=== PATIENT | female | born 2000 | race Caucasian/White ===

== ENCOUNTER 2023-01-12 14:08 | Outpatient (AMB) | payer OTHER, SELFPAY ==
--- NOTE | 2023-01-12 14:33 | AM.OFFWIN_ITS ---
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 She has been experiecing headaches, cough and congestion. Patient Tobacco Use Status: Never used Tobacco Allergies acetaminophen [From Percocet] Adverse Reaction (Mild, Verified 01/12/23 15:14) Hives oxycodone [From Percocet] Adverse Reaction (Mild, Verified 01/12/23 15:14) Hives Medication List - Last Reconciled 01/12/23 by Velasquez Rothman MD sertraline mg PO Do you need a note to return to daycare/school/sports/work: Yes HPI EP, cough, congestion ([phone]) HPI Details Patient presents for a sick visit. Reporting symptoms of sinus congestion, sore throat and difficulty swallowing. Low-grade fever. No family member is sick. No recent travel. Patient reports symptoms of malaise and fatigue. [facility] Social History Patient Tobacco Use Status: Never used Tobacco Physical Exam Vital Signs: Last Vital Signs Temp 96.8 F 01/12/23 14:40 Pulse 88 01/12/23 14:40 BP 100/68 01/12/23 14:40 Pulse Ox 98 01/12/23 14:40 Oxygen Delivery Method Room Air 01/12/23 14:40 Const General: cooperative and healthy appearing Nutritional Appearance: well nourished Orientation/consciousness: patient oriented x3 Limitations: no limitations HEENT Head: Yes normal to inspection Eyes General: appearance normal, both eyes and all related structures Neck Neck: Yes normal visual inspection Chest Chest palpation & inspection: normal palpation of entire chest wall Resp Effort & Inspection: normal respiratory effort Neuro General: patient oriented x3 Assessment & Plan Assessment & Plan (1) Upper respiratory tract infection: Code(s): J06.9 - Acute upper respiratory infection, unspecified Plan: Antibiotics ordered. Increase fluid intake. Tylenol for aches and pains. If symptoms worsen, follow-up here for a recheck. Coding Level of Care Code Est Pt Level 3 (38778) Diagnoses Upper respiratory tract infection J06.9
[2023-01-12 14:40] VITALS: BP 100/68; PULSE 88; TEMP 36; O2SAT 98
== END 2023-01-12 15:25 | disposition home or self-care (01) ==
PROVIDERS: Visit Provider Internal Medicine
DX: J06.9 Acute upper respiratory infection, unspecified (principal)
CPT/HCPCS: 99213

== ENCOUNTER 2023-03-05 08:54 | Outpatient (AMB) | payer OTHER, SELFPAY ==
--- NOTE | 2023-03-05 09:00 | AM.OFFWIN_ITS ---
Intake Vital Signs 03/05/23 09:09 Weight 170 lb BP 108/74 Blood Pressure Location Rt brachial Position Sitting Pulse 76 Pulse Source Pulse Oximeter Temp 97.8 F Temp Source Temporal Artery Scan Pulse Oximetry (%) 97 Oxygen Delivery Method Room Air Intake Visit Reasons: EST/cough/[phone] Intake Note: pt is here for c/o fever, chills, body ache, cough, sore throat Patient Tobacco Use Status: Never used Tobacco Allergies acetaminophen [From Percocet] Adverse Reaction (Mild, Verified 03/05/23 09:01) Hives oxycodone [From Percocet] Adverse Reaction (Mild, Verified 03/05/23 09:01) Hives Do you need a note to return to daycare/school/sports/work: Yes HPI HPI Comments History of Present Illness Details This is a 22-year-old female who presents to the office today for sick visit. Patient complaining of viral URI symptoms including fever/chills, cough, sore throat, mild nasal congestion, and rhinorrhea. Patient states she was treated with antibiotics for strep and an ear infection approximately 1 month ago. She states her symptoms resolved for several weeks. However, her URI symptoms began again approximately 2 days ago. 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 [facility] Social History Patient Tobacco Use Status: Never used Tobacco Review of Systems Const All systems reviewed & are unremarkable except as noted in HPI and below Reports no additional complaints Eyes Reports no additional complaints ENT Reports no additional complaints Card Reports no additional complaints Resp Reports no additional complaints GI Reports no additional complaints Reports no additional complaints Musc Reports no additional complaints Skin/Breast Reports system reviewed and no additional complaints, except as documented Neuro Reports no additional complaints Psych Reports no additional complaints Endo Reports no additional complaints Robin/Lymph Reports no additional complaints Aller/Immun Reports no additional complaints Physical Exam Vital Signs: Last Vital Signs Temp 97.8 F 03/05/23 09:09 Pulse 76 03/05/23 09:09 BP 108/74 03/05/23 09:09 Pulse Ox 97 03/05/23 09:09 Oxygen Delivery Method Room Air 03/05/23 09:09 Const Other: Vital signs reviewed. Constitutional: Non-toxic appearing. No acute distress. Well-developed and well-nourished. HEENT: Normocephalic and atraumatic. Mild erythema of the external auditory canal but tympanic membranes are within normal limits bilaterally. Moist mucous membranes. Mild posterior pharyngeal erythema but no exudates. No peritonsillar mass or cellulitis noted. No uvular deviation. Skin: Warm and dry. No rashes or lesions noted. Neck: Full and painless range of motion. No cervical lymphadenopathy. Cardio: Regular rate and rhythm. No murmurs, gallops, or rubs. No lower e xtremity edema. No JVD. Pulmonary: No respiratory distress. No accessory muscle usage. Clear to auscultation bilaterally without wheezing, crackles, or rhonchi. Gastrointestinal: Soft, nontender, and nondistended in all 4 quadrants. Normoactive bowel sounds in all 4 quadrants. Genitourinary: No CVA tenderness. Musculoskeletal: Normal range of motion in joints throughout the body. No deformity or other signs of injury. Neuro: Alert and oriented x4. Cranial nerves 2-12 grossly intact. No focal deficits appreciated. Psych: Normal mood and affect. Results AMB Rapid Strep AMB Rapid Strep Negative Last Edit by Jose Yen CMA on 03/05/23 09 :14 Assessment & Plan Assessment & Plan (1) Upper respiratory tract infection: Code(s): J06.9 - Acute upper respiratory infection, unspecified Plan Patient presenting with viral URI symptoms x2 days. Her physical examination is benign with the exception of mild posterior pharyngeal erythema and mild erythema of the external auditory canals bilaterally. No evidence of an acute otitis media, acute otitis externa, or acute infection such as pneumonia. History and physical most consistent with acute upper respiratory infection. Patient was encouraged that this is a self-limiting illness and antibiotics are not recommended. Recommended symptomatic management including rest, increased fluids, advil/tylenol for pain/fever, and over the counter throat lozenges/decongestants. Rapid strep negative. COVID/RSV/flu sent. Patient advised to follow up here or go to the emergency room for worsening/persistent symptoms. Patient verbalized understanding and is agreeable with the plan. Orders: Orders AMB Rapid Strep Screen Today Z13.9 - Encounter for screening, unspecified SARS-CoV2/FLU/RSV Today R09.89 - Other specified symptoms and signs involving the circulatory and respiratory systems Coding Level of Care Code Est Pt Level 3 (12994) Diagnoses Upper respiratory tract infection J06.9
[2023-03-05 09:09] VITALS: BP 108/74; PULSE 76; TEMP 36.6; O2SAT 97
== END 2023-03-05 09:51 | disposition home or self-care (01) ==
PROVIDERS: Visit Provider Physician Assistant Medical
DX: J06.9 Acute upper respiratory infection, unspecified (principal); J02.9 Acute pharyngitis, unspecified
CPT/HCPCS: 87880; 99213

== ENCOUNTER 2023-03-05 11:16 | Outpatient (REF) | payer OTHER, SELFPAY ==
[2023-03-05 14:18] LABS: Influenza A PCR NEGATIVE (Negative); Influenza B PCR NEGATIVE (Negative); Resp Syncy Virus RNA Qual PCR NEGATIVE (Negative); SARS COV2 PCR INHOUSE NEGATIVE (Negative)
== END 2023-03-05 11:17 | disposition home or self-care (01) ==
LOC: HO.LAB 11:16
PROVIDERS: Visit Provider Physician Assistant Medical
DX: Z11.52 Encounter for screening for COVID-19 (principal); Z20.822 Contact with and (suspected) exposure to COVID-19; R09.89 Other specified symptoms and signs involving the circulatory and respiratory systems
CPT/HCPCS: 0241U

== ENCOUNTER 2023-03-24 15:02 | Outpatient (AMB) | payer OTHER, SELFPAY ==
--- NOTE | 2023-03-24 15:03 | AM.OFFWIN_ITS ---
Intake Vital Signs 03/24/23 15:05 Height 5 ft 2 in BP 124/70 Blood Pressure Location Rt brachial Position Sitting Pulse 87 Pulse Source Pulse Oximeter Temp 97.3 F Temp Source Temporal Artery Scan Pulse Oximetry (%) 98 Oxygen Delivery Method Room Air Intake Visit Reasons: EST/cough, and chest congestion (lobby) Intake Note: Pt is here c/o bad cough and chest congestion. Patient Tobacco Use Status: Never used Tobacco Allergies acetaminophen [From Percocet] Adverse Reaction (Mild, Verified 03/24/23 15:28) Hives oxycodone [From Percocet] Adverse Reaction (Mild, Verified 03/24/23 15:28) Hives Medication List - Last Reconciled 03/24/23 by Velasquez Rothman MD sertraline mg PO Do you need a note to return to daycare/school/sports/work: No HPI EST/cough, and chest congestion (lobby) HPI Details 22-year-old female [facility]. Patient is reporting symptoms of a lingering cough for the past few weeks. Symptoms have progressively worsened yesterday. She is complaining of wheezing and shortness of breath. No productive sputum. [facility] Social History Patient Tobacco Use Status: Never used Tobacco Physical Exam Vital Signs: Last Vital Signs Temp 97.3 F 03/24/23 15:05 Pulse 87 03/24/23 15:05 BP 124/70 03/24/23 15:05 Pulse Ox 98 03/24/23 15:05 Oxygen Delivery Method Room Air 03/24/23 15:05 Const General: cooperative and healthy appearing Nutritional Appearance: well nourished Orientation/consciousness: patient oriented x3 Limitations: no limitations HEENT Head: Yes normal to inspection Eyes General: appearance normal, both eyes and all related structures Neck Neck: Yes normal visual inspection Chest Chest palpation & inspection: normal palpation of entire chest wall Resp Effort & Inspection: normal respiratory effort Neuro General: patient oriented x3 Assessment & Plan Assessment & Plan (1) Upper respiratory tract infection: Code(s): J06.9 - Acute upper respiratory infection, unspecified Plan: Chest x-ray images were personally reviewed by me. Tapering dose of prednisone, albuterol MDI, and Robitussin with codeine sent in. Orders: Orders XR chest 2V Today R05.9 - Cough, unspecified SARS-CoV2/FLU/RSV Today R43.9 - Unspecified disturbances of smell and taste Coding Level of Care Code Est Pt Level 4 (07792) Diagnoses Upper respiratory tract infection J06.9
[2023-03-24 15:05] VITALS: BP 124/70; PULSE 87; TEMP 36.3; O2SAT 98
== END 2023-03-24 16:27 | disposition home or self-care (01) ==
PROVIDERS: Visit Provider Internal Medicine
DX: J06.9 Acute upper respiratory infection, unspecified (principal)
CPT/HCPCS: 99214

== ENCOUNTER 2023-03-24 15:23 | Outpatient (REF) | payer OTHER, SELFPAY ==
--- NOTE | ~2023-03-24 | XR_ITS ---
EXAMINATION: XR CHEST CLINICAL INFORMATION: Cough, unspecified COMPARISON: None available. TECHNIQUE: 2 views of the chest were obtained. FINDINGS: No airspace infiltrates or pneumothorax seen. Hilar regions are unremarkable. No evidence for vascular congestion. Pleural surfaces appear to be clear. Nodular opacities project toward the bases, likely related to nipple shadows. There is no evidence for thoracic compression fracture. XR/XR chest 2V IMPRESSION: No evidence for acute process.
== END 2023-03-24 15:24 | disposition home or self-care (01) ==
LOC: HO.HMGCX 15:23
PROVIDERS: Visit Provider Internal Medicine
DX: R05.9 Cough, unspecified (principal)
CPT/HCPCS: 71046

== ENCOUNTER 2023-11-17 08:03 | Outpatient (AMB) | payer OTHER, SELFPAY ==
[2023-11-17 08:15] VITALS: BP 120/76; PULSE 84; TEMP 36.9; O2SAT 98; BMI 35.8
--- NOTE | 2023-11-17 08:15 | AM.OFFWIN_ITS ---
Intake Vital Signs 11/17/23 08:15 Height 5 ft 2 in Weight 196 lb BMI 35.8 BP 120/76 Blood Pressure Location Lt brachial Position Sitting Pulse 84 Pulse Source Pulse Oximeter Temp 98.5 F Temp Source Oral Pulse Oximetry (%) 98 Oxygen Delivery Method Room Air Intake Visit Reasons: EP sore threat headache Intake Note: pt is here for sore throat and headache Patient Tobacco Use Status: Never used Tobacco Allergies acetaminophen [From Percocet] Adverse Reaction (Mild, Verified 11/17/23 08:22) Hives oxycodone [From Percocet] Adverse Reaction (Mild, Verified 11/17/23 08:22) Hives Do you need a note to return to daycare/school/sports/work: Yes HPI HPI Comments History of Present Illness Details 23 y/o female patient who presents to [facility] in clinic with c/o sore- throat, cough and chest tightness. She reports symptoms started ~ 2 days ago. She does have a room-mate with positive Strept. 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 Denies fevers, chills, nausea or vomiting. [facility] Medical History (Updated 11/17/23 @ 08:43 by Edna Turner NP) Rash and nonspecific skin eruption Social History Patient Tobacco Use Status: Never used Tobacco Review of Systems Const All systems reviewed & are unremarkable except as noted in HPI and below Physical Exam Vital Signs: Last Vital Signs Temp 98.5 F 11/17/23 08:15 Pulse 84 11/17/23 08:15 BP 120/76 11/17/23 08:15 Pulse Ox 98 11/17/23 08:15 Oxygen Delivery Method Room Air 11/17/23 08:15 BMI result Body Mass Index 35.8 Const General: comfortable and no acute distress Nutritional Appearance: overweight Orientation/consciousness: patient oriented x3 HEENT Head: Yes normocephalic Ears: external ears normal and TM abnormal with fluid behind the TM General nose exam: Abnormal mucous membranes and turbinates present boggy and erythematous Face and sinus: Yes sinuses nontender Mouth: moist mucous membranes Throat: Yes uvula midline and Yes abnormal tonsil (Enlarged tonsils + 1) Resp Effort & Inspection: normal respiratory effort and able to speak in complete sentences Auscultation: clear to auscultation bilaterally, no crackles, no rales, no rhonchi and no wheezes Cardio Heart sounds: S1 normal heart sound present and S2 normal heart sound present Skin Other: Macular papular rash on both hands (dorsal) Neuro General: patient oriented x3, gait normal and moves all extremities Psych Speech and movement: Normal speech and movement present Results AMB Rapid Strep AMB Rapid Strep Negative Last Edit by Jose Yen CMA on 11/17/23 09 :40 Results Reviewed Results Reviewed: Laboratory Last Values Strep Scn Rapid Clinic Negative 11/17/23 09:40 Assessment & Plan Assessment & Plan (1) Upper respiratory tract infection: Code(s): J06.9 - Acute upper respiratory infection, unspecified Qualifiers: URI type: unspecified viral URI Qualified Code(s): J06.9 - Acute upper respiratory infection, unspecified Plan: OTC Remedies Acetaminophen for relief Rest up Hydrate with warm fluids and honey. (2) Acute pharyngitis: Code(s): J02.9 - Acute pharyngitis, unspecified Qualifiers: Pharyngitis/tonsillitis etiology: unspecified etiology Qualified Code(s): J02.9 - Acute pharyngitis, unspecified Plan: OTC Remedies Acetaminophen for relief Rest up Hydrate with warm fluids and honey. (3) Rash and nonspecific skin eruption: Code(s): R21 - Rash and other nonspecific skin eruption Plan: OTC Hydrocortisone cream BID RTC if rash not improving. Orders: Orders AMB Rapid Strep Screen Today Z13.9 - Encounter for screening, unspecified Medications: New amoxicillin-pot clavulanate 875-125 mg 1 tab PO Q12H 20 tabs 0RF 10 days J02.9 - Acute pharyngitis, unspecified, J06.9 - Acute upper respiratory infection, unspecified cetirizine (Zyrtec) 10 mg PO DAILY PRN 90 tabs 0RF allergy symptoms J06.9 - Acute upper respiratory infection, unspecified, R21 - Rash and other nonspecific skin eruption prednisone 50 mg PO DAILY 5 tabs 0RF 5 days J02.9 - Acute pharyngitis, unspecified, J06.9 - Acute upper respiratory infection, unspecified, R21 - Rash and other nonspecific skin eruption Coding Level of Care Code Est Pt Level 4 (30779) Diagnoses Viral upper respiratory tract infection J06.9 URI type: unspecified viral URI Acute pharyngitis, unspecified etiology J02.9 Pharyngitis/tonsillitis etiology: unspecified etiology Rash and nonspecific skin eruption R21 Time Spent (min) 20
== END 2023-11-17 08:55 | disposition home or self-care (01) ==
PROVIDERS: Visit Provider Nurse Practitioner Family
DX: J06.9 Acute upper respiratory infection, unspecified (principal); J02.9 Acute pharyngitis, unspecified; R21 Rash and other nonspecific skin eruption; Z13.9 Encounter for screening, unspecified
CPT/HCPCS: 87880; 99214

== ENCOUNTER 2024-03-03 08:11 | Outpatient (AMB) | payer OTHER, SELFPAY ==
[2024-03-03 08:15] VITALS: BP 114/76; PULSE 74; TEMP 36.9; O2SAT 98; BMI 34.6
--- NOTE | 2024-03-03 08:15 | AM.OFFWIN_ITS ---
Intake Vital Signs 03/03/24 08:15 Height 5 ft 2 in Weight 189 lb BMI 34.6 BP 114/76 Blood Pressure Location Rt brachial Position Sitting Pulse 74 Pulse Source Pulse Oximeter Temp 98.4 F Temp Source Oral Pulse Oximetry (%) 98 Oxygen Delivery Method Room Air Intake Visit Reasons: EP ? hand, foot, mouth & congestion Intake Note: Patient here for for possible hands, foot and mouth, chest congestion. pt states she two of her kids at work have hands, foot and mouth and she has blisters that started yesterday. Patient Tobacco Use Status: Never used Tobacco Allergies acetaminophen [From Percocet] Adverse Reaction (Mild, Verified 03/03/24 08:21) Hives oxycodone [From Percocet] Adverse Reaction (Mild, Verified 03/03/24 08:21) Hives Do you need a note to return to daycare/school/sports/work: Yes HPI HPI Comments History of Present Illness Details This is a 23-year-old female who presents to the office today for sick visit. Patient complaining of nasal/sinus congestion and sore throat as well as rash on bilateral hands and feet. 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 Patient states her nasal/sinus congestion sore throat began about 2 or 3 days ago; however, she woke up with the rash on her hands and feet this morning. She does report low-grade fevers and chills. She denies any productive cough. [facility] Medical History (Updated 11/17/23 @ 08:43 by Edna Turner NP) Rash and nonspecific skin eruption Social History Patient Tobacco Use Status: Never used Tobacco Review of Systems Const All systems reviewed & are unremarkable except as noted in HPI and below Reports no additional complaints Eyes Reports no additional complaints ENT Reports no additional complaints Card Reports no additional complaints Resp Reports no additional complaints GI Reports no additional complaints Reports no additional complaints Musc Reports no additional complaints Skin/Breast Reports system reviewed and no additional complaints, except as documented Neuro Reports no additional complaints Psych Reports no additional complaints Endo Reports no additional complaints Robin/Lymph Reports no additional complaints Aller/Immun Reports no additional complaints Physical Exam Vital Signs: Last Vital Signs Temp 98.4 F 03/03/24 08:15 Pulse 74 03/03/24 08:15 BP 114/76 03/03/24 08:15 Pulse Ox 98 03/03/24 08:15 Oxygen Delivery Method Room Air 03/03/24 08:15 BMI result Body Mass Index 34.6 Const Other: Vital signs reviewed. Constitutional: Non-toxic appearing. No acute distress. Well-developed and well-nourished. HEENT: Normocephalic and atraumatic. Tympanic membranes without erythema, edema, or bulging bilaterally. External auditory canals without erythema or edema bilaterally. Moist mucous membranes. There is mild posterior pharyngeal erythema without appreciable mucosal lesions. Skin: Warm and dry. Maculopapular erythematous rash to bilateral hands and feet without surrounding erythema or purulent drainage. The palmar and plantar aspects of the hand and feet are spared. Neck: Full and painless range of motion. No cervical lymphadenopathy. Cardio: Regular rate and rhythm. No murmurs, gallops, or rubs. Pulmonary: No respiratory distress. No accessory muscle usage. Clear to auscultation bilaterally without wheezing, crackles, or rhonchi. Gastrointestinal: Soft, nontender, and nondistended in all 4 quadrants. Musculoskeletal: Normal range of motion in joints throughout the body. No deformity or other signs of injury. Neuro: Alert and oriented x4. Cranial nerves 2-12 grossly intact. No focal deficits appreciated. Psych: Normal mood and affect. Assessment & Plan Assessment & Plan (1) Hand, foot and mouth disease (HFMD): Code(s): B08.4 - Enteroviral vesicular stomatitis with exanthem Plan: This is a 23-year-old female who presented to the walk-in clinic complaining of nasal/sinus congestion, sore throat, and rash to bilateral hands and feet. 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 Her history and physical do appear to be consistent with qhah-smzk-mxoxt disease given maculopapular erythematous rash on bilateral hands and feet. Patient was made aware that this is a self-limiting viral illness although it is highly contagious. She was instructed to stay out of work while she has lesions present. Patient was educated on the importance of hygiene such as washing her hands and sanitizing/disinfecting around the house. I recommended symptomatic management including acetaminophen/ibuprofen as needed for pain/fever, saltwater gargles, rest, increase fluids, as well as nxzj-zkv-alvrrne calamine lotion or oatmeal baths request to sooth the rash. Patient verbalized her understanding and she is in agreement with the plan. Coding Level of Care Code Est Pt Level 3 (00442) Diagnoses Hand, foot and mouth disease (HFMD) B08.4
== END 2024-03-03 08:49 | disposition home or self-care (01) ==
PROVIDERS: Visit Provider Physician Assistant Medical
DX: B08.4 Enteroviral vesicular stomatitis with exanthem (principal)

== ENCOUNTER → 2024-03-03 08:11 | Outpatient (BNVA) | payer OTHER, SELFPAY | PROVIDERS: Visit Provider Physician Assistant Medical ==

== ENCOUNTER 2024-05-23 08:08 | Outpatient (REF) | payer OTHER, SELFPAY ==
--- OUTSIDE RECORDS SUMMARY | 2024-05-23 11:05 | XMS_ITS | Encounter Summary ---
Author Organization [facility] Address [address] [place] [address] Phone Care Team Providers Care Certified Genetic Counselor Name Role Phone Héctor Regan MD Primary Care Provider [phone] Reason for Visit * Reason Comments Med Refill Encounter Details Date Type Department Care Team (Late st Contact Info) Description 09/10/2022 Refill [facility] [address] [place] [address] [place] [address] Héctor Regan MD [address] [place] [address] [place] [address] Anxiety Social History Tobacco Use Types Packs/Day [...] Description 08/29/2024 9:00 AM EDT Clinical Support [facility] [address] [place] [address] [place] [address] documented as of this encounter Visit Diagnoses Diagnosis Anxiety Anxiety state, unspecified documented in this encounter Care Teams Certified Genetic Counselor Relationship Specialty Start Date End Date Héctor Regan MD [address] [place] [address] [place] [address] PCP - General Pediatrics 05/16/21 documented as of this encounter
--- OUTSIDE RECORDS SUMMARY | 2024-05-23 11:05 | XMS_ITS | Encounter Summary ---
Author Organization [facility] Address [address] [place] [address] Phone Care Team Providers Care Flight Communications Operator Name Role Phone Héctor Regan MD Primary Care Provider [phone] Reason for Visit * Reason Comments Med Refill Encounter Details Date Type Department Care Team (Late st Contact Info) Description 07/27/2020 Refill [facility] [address] [place] [address] [place] [address] Héctor Regan MD [address] [place] [address] [place] [address] Anxiety Social History Tobacco Use Types Packs/Day [...] Aguirre MA - 07/29/2020 9:58 AM EDT [facility] 05/09/[address] Regan's absence. documented in this encounter Plan of Treatment Upcoming Encounters Date Type Department Care Team (Late st Contact Info) Description 08/29/2024 9:00 AM EDT Clinical Support [facility] [address] [place] [address] [place] [address] documented as of this encounter Visit Diagnoses Diagnosis Anxiety Anxiety state, unspecified documented in this encounter Care Teams Flight Communications Operator Relationship Specialty Start Date End Date Héctor Regan MD [facility] [place] [address] PCP - General Pediatrics 05/16/21 documented as of this encounter
--- OUTSIDE RECORDS SUMMARY | 2024-05-23 11:05 | XMS_ITS | Encounter Summary ---
Author Organization [facility] Address [address] [place] [address] Phone Care Team Providers Care Diagnostic Sales Specialist Name Role Phone Héctor Regan MD Primary Care Provider [phone] Reason for Visit * Reason Onset Date Comments Med Refill 09/02/2020 Encounter Details Date Type Department Care Team (Late st Contact Info) Description 09/02/2020 Refill [facility] [address] [place] [address] [place] [address] Giancarlo Kaur MD [address] [place] [address] [place] [address] Anxiety Social History Tobacco Use Types Packs/Day [...] Description 08/29/2024 9:00 AM EDT Clinical Support [facility] [address] [place] [address] [place] [address] documented as of this encounter Visit Diagnoses Diagnosis Anxiety Anxiety state, unspecified documented in this encounter Care Teams Diagnostic Sales Specialist Relationship Specialty Start Date End Date Héctor Regan MD [address] [place] [address] [place] [address] PCP - General Pediatrics 05/16/21 documented as of this encounter
--- OUTSIDE RECORDS SUMMARY | 2024-05-23 11:05 | XMS_ITS | Encounter Summary ---
Author Organization [facility] Address [address] [place] [address] Phone Care Team Providers Care Rn New Grad Name Role Phone Héctor Regan MD Primary Care Provider [phone] Encounter Details Date Type Department Care Team (Late st Contact Info) Description 11/17/2010 Conversion Encounter [facility] [address] [place] [address] [place] [address] Social History Tobacco Use Types Packs/Day Years [...] Description 08/29/2024 9:00 AM EDT Clinical Support [facility] [address] [place] [address] [place] [address] documented as of this encounter Visit Diagnoses Not on filedocumented in this encounter Care Teams Rn New Grad Relationship Specialty Start Date End Date Héctor Regan MD [address] [place] [address] [place] [address] PCP - General Pediatrics 05/16/21 documented as of this encounter
--- OUTSIDE RECORDS SUMMARY | 2024-05-23 11:05 | XMS_ITS | Encounter Summary ---
Author Organization [facility] Address [address] [place] [address] Phone Care Team Providers Care Hearing Care Practitioner Name Role Phone Héctor Regan MD Primary Care Provider [phone] Reason for Visit * Reason Comments Med Refill Encounter Details Date Type Department Care Team (Late st Contact Info) Description 04/02/2020 Refill [facility] [address] [facility] [address] Debi Manning MD [address] [place] [address] Anxiety Social History Tobacco Use Types Packs/Day [...] Description 08/29/2024 9:00 AM EDT Clinical Support [facility] [address] [facility] [address] documented as of this encounter Visit Diagnoses Diagnosis Anxiety Anxiety state, unspecified documented in this encounter Care Teams Hearing Care Practitioner Relationship Specialty Start Date End Date Héctor Regan MD [address] [facility] [address] PCP - General Pediatrics 05/16/21 documented as of this encounter
--- OUTSIDE RECORDS SUMMARY | 2024-05-23 11:06 | XMS_ITS | Encounter Summary ---
Author Organization [facility] Address [address] [place] [address] Phone Care Team Providers Care Waste Machine Operator Name Role Phone Héctor Regan MD Primary Care Provider [phone] Reason for Visit * Reason Comments Med Change Request Encounter Details Date Type Department Care Team (Late st Contact Info) Description 04/28/2022 [facility] [address] [place] [address] [place] [address] Héctor Regan MD [address] [place] [address] [place] [address] Anxiety Social History Tobacco Use Types Packs/Day [...] Description 08/29/2024 9:00 AM EDT Clinical Support [facility] [address] [place] [address] [place] [address] documented as of this encounter Visit Diagnoses Diagnosis Anxiety Anxiety state, unspecified documented in this encounter Care Teams Waste Machine Operator Relationship Specialty Start Date End Date Héctor Regan MD [facility] [facility] [place] [address] PCP - General Pediatrics 05/16/21 documented as of this encounter
--- OUTSIDE RECORDS SUMMARY | 2024-05-23 11:06 | XMS_ITS | Clinical Summary ---
Author Organization [facility] Address [address] [place] [address] Phone Care Team Providers Care Clothespin Drier Operator Name Role Phone Héctor Regan MD Primary Care Provider [phone] Allergies Active Allergy Reactions Criticality Noted Date [...] Plan (02/29/2024 4:33 PM EST): Dx by DEPARTMENT CLINICIAN recently as reported by patient Started on [...] PCOS ordered today Should also talk with DEPARTMENT CLINICIAN about this Well adult exam 09/18/2022 Assessment & Plan (09/18/2022 4:31 PM EDT): Dawn is doing well. She will continue to work toward a healthy diet and staying active She will call DEPARTMENT CLINICIAN for an apt. Anxiety well controlled. Continue [...] from 8 surgeries, Dr. Giancarlo Bah, at [facility]. Insomnia disorder 02/01/2020 Anxiety 12/31/2019 Assessment & [...] call In 2 weeks to check in [facility] in June Assessment & Plan (03/14/2021 5:42 [...] Type Department Care Team Description 04/06/[address] [place] [address] Héctor Regan MD Anxiety 02/29/2024 2:15 PM EST Office Visit [facility] [address] [place] [address] [place] [address] Lula Hatfield, LUIGI Well adult exam (Primary [...] Problems Brother Jerry No Known Problems Father Marlnei No Known Problems Mother Christen Relation Name [...] Description 08/29/2024 9:00 AM EDT Clinical Support [facility] [place] [address] Health Maintenance Due Date Last Done Comments [...] complete this topic Procedures * Due to [place] state law, this organization might not be [...] Last 3 Months Results * Due to [place] state law, this organization might not be sharing sensitive test results. * Chlamydia and Gonorrhea, Amplified (02/29/2024 3:06 PM EST) C trach SWETA Negative Negative [facility] N gonorrhoeae SWETA Negative Negative [facility] Swab (Vagina) 02/29/2024 3:0 6 PM EST 02/29/2024 Comment:Vagina Narrative [facility] - 03/01/2024 6:06 PM EST Performed at: ??01 - [facility] [address], [address], [place], [place] ??[id number] New Car Make Ready Mechanic: Rafa Sailnas MD, Phone: ??[phone] Lula Hatfield NP LAB MICROBIOLOGY - GENERAL ORDER RACHAEL Final Result Performing Organization Address City/[facility]/ZIP Co de Phone Number [facility] [address] [place] [address] * POCT hemoglobin (02/29/2024 2:32 PM EST) Hemoglobin, POC 13.3 11.4 - 14.8 g/dL [facility] Blood (Blood) 02/29/2024 2:3 2 PM EST us Lula Hatfield NP POINT OF CARE TEST ORDERABLES Fi nal Result [facility] [address] [facility], [address] [place] [address] from Last 3 Months Insurance ED [facility] COMMERCIAL ED [facility] COMMERCIAL Care Teams Clothespin Drier Operator Relationship Specialty Start Date End Date Héctor Regan MD [address] [place] [address] [place] [address] PCP - General Pediatrics 05/16/21
--- OUTSIDE RECORDS SUMMARY | 2024-05-23 11:06 | XMS_ITS | Encounter Summary ---
Author Organization [facility] Address [address] [place] [address] Phone Care Team Providers Care Quality Control Assessor Name Role Phone Héctor Regan MD Primary Care Provider [phone] Reason for Visit * Reason Comments Med Refill Encounter Details Date Type Department Care Team (Late st Contact Info) Description 07/31/2022 Refill [facility] [address] [place] [address] [place] [address] Héctor Regan MD [address] [place] [address] [place] [address] Anxiety Social History Tobacco Use Types Packs/Day [...] Description 08/29/2024 9:00 AM EDT Clinical Support [facility] [address] [place] [address] [place] [address] documented as of this encounter Visit Diagnoses Diagnosis Anxiety Anxiety state, unspecified documented in this encounter Care Teams Quality Control Assessor Relationship Specialty Start Date End Date Héctor Regan MD [address] [place] [address] [place] [address] PCP - General Pediatrics 05/16/21 documented as of this encounter
--- OUTSIDE RECORDS SUMMARY | 2024-05-23 11:06 | XMS_ITS | Encounter Summary ---
Author Organization [facility] Address [address] [place] [address] Phone Care Team Providers Care Garage Construction Equipment Mechanic Name Role Phone Héctor Regan MD Primary Care Provider [phone] Reason for Visit * Reason Comments Med Refill Encounter Details Date Type Department Care Team (Late st Contact Info) Description 01/05/2021 Refill [facility] [place] [address] Debi Manning MD [address] [place] [address] Anxiety Social History Tobacco Use Types Packs/Day [...] Description 08/29/2024 9:00 AM EDT Clinical Support [facility] [address] [place] [address] [place] [address] documented as of this encounter Visit Diagnoses Diagnosis Anxiety Anxiety state, unspecified documented in this encounter Care Teams Garage Construction Equipment Mechanic Relationship Specialty Start Date End Date Héctor Regan MD [address] [place] [address] [place] [address] PCP - General Pediatrics 05/16/21 documented as of this encounter
--- OUTSIDE RECORDS SUMMARY | 2024-05-23 11:06 | XMS_ITS | Encounter Summary ---
Author Organization [facility] Address [address] [place] [address] Phone Care Team Providers Care Technical Rep Name Role Phone Héctor Regan MD Primary Care Provider [phone] Reason for Visit * Reason Comments Med Refill Encounter Details Date Type Department Care Team (Late st Contact Info) Description 01/28/2021 Refill [facility] [place] [address] Debi Manning MD [address] [place] [address] Anxiety Social History Tobacco Use Types Packs/Day [...] Description 08/29/2024 9:00 AM EDT Clinical Support [facility] [address] [place] [address] [place] [address] documented as of this encounter Visit Diagnoses Diagnosis Anxiety Anxiety state, unspecified documented in this encounter Care Teams Technical Rep Relationship Specialty Start Date End Date Héctor Regan MD [address] [place] [address] [place] [address] PCP - General Pediatrics 05/16/21 documented as of this encounter
[2024-05-23 11:28] LABS: Influenza A PCR POSITIVE (Negative); Influenza B PCR NEGATIVE (Negative); Resp Syncy Virus RNA Qual PCR NEGATIVE (Negative); SARS COV2 PCR INHOUSE NEGATIVE (Negative)
== END 2024-05-23 08:09 | disposition home or self-care (01) ==
LOC: HO.LNP 08:08
PROVIDERS: Physician Assistant; PCP Internal Medicine
DX: J06.9 Acute upper respiratory infection, unspecified (principal)
CPT/HCPCS: 0241U

== ENCOUNTER 2024-05-23 08:08 | Outpatient (AMB) | payer OTHER, SELFPAY ==
--- OUTSIDE RECORDS SUMMARY | 2024-05-23 08:14 | XMS_ITS | Encounter Summary ---
Author Organization [facility] Address [address] [place] [id number] Phone Care Team Providers Care [employer] Sergeant Name Role Phone Héctor Regan MD Primary Care Provider [phone] Reason for Visit * Reason Onset Date Comments Med Refill 09/02/2020 Encounter Details Date Type Department Care Team (Late st Contact Info) Description 09/02/2020 Refill [facility] [address] [place] [address] [place] [id number] Giancarlo Kaur MD [address] [place] [address] [place] [id number] Anxiety Social History Tobacco Use Types Packs/Day Years Used Date Smoking Tobacco: Never Smokeless Tobacco: Never Comments:Never Smoker Alcohol Use Standard Drinks/Week Comments Not Currently 0 (1 standard drink = 0.6 oz pur e alcohol) socially Hunger/Food Answer Date Recorded In the last 12 months, did y ou or your family ever eat less than you felt you should because there wasn't enough money for food? No 05/09/2020 Stable Housing Answer Date Recorded Are you worried that in the next 2 months you may not have stable housing? No 05/09/2020 Transportation Concerns Answer Date Rec orded In the last 12 months, have you or your family ever had to go without healthcare because you didn't have a way to get there? No 05/09/2020 Hazards in Home Answer Date Recorded Think about the place you li ve. Do you have problems with any of the following? Pests (mice or roaches), mold, no/not working smoke detectors, water leaks, no window guards. No 2020 Financing Utilities Answer Date Recorde d In the last 12 months, has t he electric, gas, oil, or water company threatened to shut off your services in your home? No 05/09/2020 Safety at Home Answer Date Recorded Are you or your family worried about feeling saf e in your home? No 05/09/2020 Outside Support Answer Date Recorded Do you feel that you need mo re support from other people or programs to help you care for yourself or your family? No 05/09/2020 Understanding Health Concerns Answer Da te Recorded Do you need help understandi ng your or your child's healthcare needs (diagnosis, medications, plan, etc.)? No 05/09/2020 Financing Health Concerns Answer Date R ecorded In the last 12 months, was t here a time when your child needed to see a doctor or get medications or supplies but could not because of cost? No 05/09/2020 Missing School or Work Answer Date Stefano rded Did you or your child miss s chool or work because of a health problem that could have been avoided? No 05/09/2020 Comments No Sex and Gender Information Value Date Recorded Sex Assigned at Female 02/29/2024 2:19 PM EST Legal Sex Female 6:32 PM EDT Gender Identity Female 02/29/2024 2:19 PM EST Sexual Orientation Bisexual 09/18/2022 3: 54 PM EDT documented as of this encounter Plan of Treatment Upcoming Encounters Date Type Department Care Team (Late st Contact Info) Description 08/29/2024 9:00 AM EDT Clinical Support [facility] [address] [place] [address] [place] [phone] documented as of this encounter Visit Diagnoses Diagnosis Anxiety Anxiety state, unspecified documented in this encounter Care Teams [employer] Sergeant Relationship Specialty Start Date End Date Héctor Regan MD [address] [place] [address] [place] [id number] PCP - [facility] 05/16/21 documented as of this encounter
--- OUTSIDE RECORDS SUMMARY | 2024-05-23 08:14 | XMS_ITS | Encounter Summary ---
Author Organization [facility] Address [address] [place] [address] Phone Care Team Providers Care Supervisor Felting Name Role Phone Héctor Regan MD Primary Care Provider [phone] Reason for Visit * Reason Comments Med Refill Encounter Details Date Type Department Care Team (Late st Contact Info) Description 04/02/2020 Refill [facility] [address] [place] [address] Debi Manning MD [address] [place] [address] Anxiety Social History Tobacco Use Types Packs/Day Years Used Date Smoking Tobacco: Never Smokeless Tobacco: Never Comments:Never Smoker Alcohol Use Standard Drinks/Week Comments Not Currently 0 (1 standard drink = 0.6 oz pur e alcohol) socially Hunger/Food Answer Date Recorded No 01/20/2020 Stable Housing Answer Date Recorded No 01/20/2020 Transportation Concerns Answer Date Rec orded No 01/20/2020 Hazards in Home Answer Date Recorded No 03/07/2020 Financing Utilities Answer Date Recorde d No 03/07/2020 Safety at Home Answer Date Recorded No 03/07/2020 Outside Support Answer Date Recorded No 03/07/2020 Understanding Health Concerns Answer Da te Recorded No 03/07/2020 Financing Health Concerns Answer Date R ecorded No 03/07/2020 Missing School or Work Answer Date Stefano rded No 03/07/2020 Comments Unknown Sex and Gender Information Value Date Recorded Sex Assigned at Female 02/29/2024 2:19 PM EST Legal Sex Female 6:32 PM EDT Gender Identity Female 02/29/2024 2:19 PM EST Sexual Orientation Bisexual 09/18/2022 3: 54 PM EDT documented as of this encounter Plan of Treatment Upcoming Encounters Date Type Department Care Team (Late st Contact Info) Description 08/29/2024 9:00 AM EDT Clinical Support [facility] [address] [place] [address] documented as of this encounter Visit Diagnoses Diagnosis Anxiety Anxiety state, unspecified documented in this encounter Care Teams Supervisor Felting Relationship Specialty Start Date End Date Héctor Regan MD [address] [place] [address] PCP - General Pediatrics 05/16/21 documented as of this encounter
--- OUTSIDE RECORDS SUMMARY | 2024-05-23 08:14 | XMS_ITS | Encounter Summary ---
Author Organization [facility] Address [address] [place] [address] Phone Care Team Providers Care Room Clerk Name Role Phone Héctor Regan MD Primary Care Provider [phone] Reason for Visit * Reason Comments Med Refill Encounter Details Date Type Department Care Team (Late st Contact Info) Description 09/10/2022 Refill [facility] [address] [place] [address] [place] [address] Héctor Regan MD [address] [place] [address] [place] [address] Anxiety Social History Tobacco Use Types Packs/Day [...] PM EDT documented as of this encounter Miscellaneous Notes * Telephone Encounter - Bruna Aguirre MA - 09/11/2022 7:57 AM EDT PLEASE REFUSE Patient was sent a mychart msg in Apr to call an schedule wcc/med ck in order to refill medication.Appt never scheduled. Last wcc 05/16/21. Pt was seen in Apr 2022 for strep throat, medication not discussed in note. Rx was last filled 04/14/22. documented in this encounter Plan of Treatment Upcoming Encounters Date Type Department Care Team (Late st Contact Info) Description 08/29/2024 9:00 AM EDT Clinical Support [facility] [address] [place] [address] [place] [address] documented as of this encounter Visit Diagnoses Diagnosis Anxiety Anxiety state, unspecified documented in this encounter Care Teams Room Clerk Relationship Specialty Start Date End Date Héctor Regan MD [address] [place] [address] [place] [address] PCP - General Pediatrics 05/16/21 documented as of this encounter
--- OUTSIDE RECORDS SUMMARY | 2024-05-23 08:14 | XMS_ITS | Encounter Summary ---
Author Organization [facility] Address [address] [place] [address] Phone Care Team Providers Care Guyline Operator Name Role Phone Héctor Regan MD Primary Care Provider [phone] Encounter Details Date Type Department Care Team (Late st Contact Info) Description 11/17/2010 Conversion Encounter [facility] [address] [place] [address] [place] [address] Social History Tobacco Use Types Packs/Day Years Used Date Smoking Tobacco: Never Assessed Comments Unknown Sex and Gender Information Value [...] Description 08/29/2024 9:00 AM EDT Clinical Support [facility] [address] [place] [address] [place] [address] documented as of this encounter Visit Diagnoses Not on filedocumented in this encounter Care Teams Guyline Operator Relationship Specialty Start Date End Date Héctor Regan MD [address] [place] [address] [place] [address] PCP - General Pediatrics 05/16/21 documented as of this encounter
--- OUTSIDE RECORDS SUMMARY | 2024-05-23 08:14 | XMS_ITS | Encounter Summary ---
Author Organization [facility] Address [address] [place] [address] Phone Care Team Providers Care Welt Rougher Name Role Phone Héctor Regan MD Primary Care Provider [phone] Reason for Visit * Reason Comments Med Refill Encounter Details Date Type Department Care Team (Late st Contact Info) Description 07/27/2020 Refill [facility] [address] [place] [address] [place] [address] Héctor Regan MD [address] [place] [address] [place] [address] Anxiety Social History Tobacco Use Types Packs/Day [...] Telephone Encounter - Bruna Aguirre MA - 07/29/2020 9:58 AM EDT [facility] 05/09/[address] Regan's absence. documented in this encounter Plan of Treatment Upcoming Encounters Date Type Department Care Team (Late st Contact Info) Description 08/29/2024 9:00 AM EDT Clinical Support [facility] [address] [place] [address] [place] [address] documented as of this encounter Visit Diagnoses Diagnosis Anxiety Anxiety state, unspecified documented in this encounter Care Teams Welt Rougher Relationship Specialty Start Date End Date Héctor Regan MD [facility] [facility] [place] [address] PCP - General Pediatrics 05/16/21 documented as of this encounter
--- OUTSIDE RECORDS SUMMARY | 2024-05-23 08:15 | XMS_ITS | Encounter Summary ---
Author Organization [facility] Address [address] [place] [address] Phone Care Team Providers Care Garment Manufacturer Name Role Phone Héctor Regan MD Primary Care Provider [phone] Reason for Visit * Reason Comments Med Refill Encounter Details Date Type Department Care Team (Late st Contact Info) Description 07/31/2022 Refill [facility] [address] [place] [address] [place] [address] Héctor Regan MD [address] [place] [address] [place] [address] Anxiety Social History Tobacco Use Types Packs/Day [...] Telephone Encounter - Bruna Aguirre MA - 08/02/2022 7:30 PM EDT PLEASE REFUSE Patient was sent a [...] Description 08/29/2024 9:00 AM EDT Clinical Support [facility] [address] [place] [address] [place] [address] documented as of this encounter Visit Diagnoses Diagnosis Anxiety Anxiety state, unspecified documented in this encounter Care Teams Garment Manufacturer Relationship Specialty Start Date End Date Héctor Regan MD [address] [place] [address] [place] [address] PCP - General Pediatrics 05/16/21 documented as of this encounter
--- OUTSIDE RECORDS SUMMARY | 2024-05-23 08:15 | XMS_ITS | Patient Health Record ---
Author Organization [facility] Address [address] [facility] [address] [place] [address] Care Team Providers Care Marketing Content Manager Name Role Phone Yenifer Villar Unavailable [phone] Reason For Referral No Information Plan Of Treatment No Information Insurance Providers Payer Name Payer Address Payer Phone Subscriber Number Group Number Insured Name Patient Relationship to Insured Coverage Start Date Coverage End Date [facility] [address] [place] [address] [id number] AURELIO VEGA Self - patient is the insured
--- OUTSIDE RECORDS SUMMARY | 2024-05-23 08:15 | XMS_ITS | Encounter Summary ---
Author Organization [facility] Address [address] [place] [address] Phone Care Team Providers Care Vinyl Flooring Installer Name Role Phone Héctor Regan MD Primary Care Provider [phone] Reason for Visit * Reason Comments Med Refill Encounter Details Date Type Department Care Team (Late st Contact Info) Description 01/05/2021 Refill [facility] [facility] [place] [address] Debi Manning MD [address] [place] [address] Anxiety Social History Tobacco Use Types Packs/Day [...] Description 08/29/2024 9:00 AM EDT Clinical Support [facility] [address] [place] [address] [place] [address] documented as of this encounter Visit Diagnoses Diagnosis Anxiety Anxiety state, unspecified documented in this encounter Care Teams Vinyl Flooring Installer Relationship Specialty Start Date End Date Héctor Regan MD [address] [place] [address] [place] [address] PCP - General Pediatrics 05/16/21 documented as of this encounter
--- OUTSIDE RECORDS SUMMARY | 2024-05-23 08:15 | XMS_ITS | Encounter Summary ---
Author Organization [facility] Address [address] [place] [address] Phone Care Team Providers Care Tooth Grinder Name Role Phone Héctor Regan MD Primary Care Provider [phone] Reason for Visit * Reason Comments Med Refill Encounter Details Date Type Department Care Team (Late st Contact Info) Description 01/28/2021 Refill [facility] [place] [address] Debi Manning MD [address] [place] [address] Anxiety Social History Tobacco Use Types Packs/Day [...] Description 08/29/2024 9:00 AM EDT Clinical Support [facility] [address] [place] [address] [place] [address] documented as of this encounter Visit Diagnoses Diagnosis Anxiety Anxiety state, unspecified documented in this encounter Care Teams Tooth Grinder Relationship Specialty Start Date End Date Héctor Regan MD [address] [place] [address] [place] [address] PCP - General Pediatrics 05/16/21 documented as of this encounter
--- OUTSIDE RECORDS SUMMARY | 2024-05-23 08:15 | XMS_ITS | Encounter Summary ---
Author Organization [facility] Address [address] [place] [address] Phone Care Team Providers Care General Service Officer Name Role Phone Héctor Regan MD Primary Care Provider [phone] Reason for Visit * Reason Comments Med Change Request Encounter Details Date Type Department Care Team (Late st Contact Info) Description 04/28/2022 [facility] [address] [place] [address] [place] [address] Héctor Regan MD [address] [place] [address] [place] [address] Anxiety Social History Tobacco Use Types Packs/Day [...] Telephone Encounter - Bruna Aguirre MA - 04/29/2022 8:25 AM EST PLEASE REFUSE Please refuse for now until pt schedules appt. * Telephone Encounter - Bruna Aguirre MA - 04/28/2022 9:00 AM EST Pt no showed med ck, sent mychart msg to r/s this prior to refilling documented in this encounter Plan of Treatment Upcoming Encounters Date Type Department Care Team (Late st Contact Info) Description 08/29/2024 9:00 AM EDT Clinical Support [facility] [address] [place] [address] [place] [address] documented as of this encounter Visit Diagnoses Diagnosis Anxiety Anxiety state, unspecified documented in this encounter Care Teams General Service Officer Relationship Specialty Start Date End Date Héctor Regan MD [facility] [facility] [place] [address] PCP - General Pediatrics 05/16/21 documented as of this encounter
--- OUTSIDE RECORDS SUMMARY | 2024-05-23 08:15 | XMS_ITS | Clinical Summary ---
Author Organization [facility] Address [address] [place] [address] Phone Care Team Providers Care Research Associate Quality Control Qc Name Role Phone Héctor Regan MD Primary Care Provider [phone] Allergies Active Allergy Reactions Criticality Noted Date Comments Oxycodone-Acetaminophen 08/29/2020 Medications albuterol HFA 108 (90 Base) MCG/ACT inhalerIndicatio ns:Mild intermittent asthma, unspecified whether complicated Inhale 2 puffs every 6 (six) hours as needed for wheezing or shortness of breath. 1 Units 1 1 Active hydrOXYzine 25 MG tabletIndication s:Anxiety Take 1 tablet (25 mg total) by mouth daily. 90 tablet 4 Active Additional Information Patient not taking.Reported on 02/29/2024 drospirenone-eth inyl estradiol 3-0.02 MG per tablet Take 1 tablet by mouth daily. 4 Active sertraline 50 MG tabletIndication s:Anxiety TAKE 1&1/2 TABLETS (75 MG TOTAL) BY MOUTH ONCE DAILY 135 tablet 4 Active Active Problems Problem Noted Date Diagnosed Date PCOS (polycystic ovarian syndrome) 02/29/2024 Assessment & Plan (02/29/2024 4:33 PM EST): Dx by CORRECTIONAL CAPTAIN recently as reported by patient Started on OCP Class 1 obesity due to exces s calories without serious comorbidity with body mass index (BMI) of 34.0 to 34.9 in adult 02/29/2024 Assessment & Plan (02/29/2024 4:34 PM EST): Discussed importance of healthy diet and regular exercise Urticaria 02/29/2024 Assessment & Plan (02/29/2024 4:35 PM EST): Urticaria vs reactive rash Unclear etiology Discussed possible triggers Suggest keeping sx log Advise zyrtec daily Can consider allergy consult Hirsutism 04/29/2023 Assessment & Plan (04/29/2023 4:57 PM EST): Blood work for PCOS ordered today Should also talk with CORRECTIONAL CAPTAIN about this Well adult exam 09/18/2022 Assessment & Plan (09/18/2022 4:31 PM EDT): Dawn is doing well. She will continue to work toward a healthy diet and staying active She will call CORRECTIONAL CAPTAIN for an apt. Anxiety well controlled. Continue sertaline. See her back in 6 months for re- check. She may find an adult office prior to next visit to take over care Young Adult Plan: Get 8-9 hours of sleep per night. Eat healthy diet including 5 servings fruits and vegetables, no daily soda or juice, 3 servings calcium rich foods daily. Get one hour of exercise daily. Wear seatbelt in car, helmet while riding bike. Dental checkup every 6 months If wears eyeglasses or contacts, vision exam yearly Personal space, safe sex, bullying counseling done. Influenza vaccine refused 05/16/2021 Hepatitis A vaccination declined 05/16/2021 Ankle pain, chronic 05/16/2021 Assessment & Plan (05/16/2021 3:03 PM EST): Chronic ankle pain from 8 surgeries, Dr. Giancarlo Bah, at [facility]. Insomnia disorder 02/01/2020 Anxiety 12/31/2019 Assessment & Plan (02/29/2024 3:32 PM EST): Has been managing well Sertraline daily Extrinsic asthma 03/27/2015 Overview (12/06/2018): Asthma (493.00) Onset: 03/27/2015 Added by: Jami Morgan Assessment & Plan (02/29/2024 3:32 PM EST): URI induced Prn use of albuterol with good effect Resolved Problems Problem Noted Date Diagnosed Date Resolved Date Refusal of human papilloma v irus (HPV) vaccination 05/16/2021 02/29/2024 Gastroenteritis 08/29/2020 09/18/2022 Assessment & Plan (08/29/2020 1:36 PM EDT): Feeling nauseous, fever has resolved, no diarrhea. But this sounds more like gastroenteritis. Her covid test is negative. Anxiety 02/01/2020 02/29/2024 Assessment & Plan (07/06/2023 3:14 PM EDT): Doing well on her medication. Saw Yessi in April. NO adjustments to her medication. Doing well with working. F/u at the this summer. Assessment & Plan (04/29/2023 4:57 PM EST): Begin hydroxyzine at bedtime as needed Continue sertraline 50 mg Phone call In 2 weeks to check in [facility] in June Assessment & Plan (03/14/2021 5:42 PM EST): Continue with sertraline 50mg which she has been taking. Refilled script today. Follow up with Dr. Regan at well visit in April. Assessment & Plan (02/01/2020 12:45 PM EDT): We will continue with zoloft at 50 mg, and we will start with trazodone 50 mg for sleep. We will see her back in 1 month. Asthma 12/31/2019 02/29/2024 Encounters Date Type Department Care Team Description 04/06/[address] [place] [address] Héctor Regan MD Anxiety 02/29/2024 2:15 PM EST Office Visit [facility] [address] [place] [address] [place] [address] Lula Hatfield, LUIGI Well adult exam (Primary Dx); Need for vaccination; Encounter for screening examination for sexually transmitted disease; Screening for iron deficiency anemia; Body mass index (BMI) less than 19 in adult; Dietary counseling; Exercise counseling; Screen for sexually transmitted diseases; Influenza vaccine refused; Hirsutism; Mild intermittent extrinsic asthma without complication; Anxiety; PCOS (polycystic ovarian syndrome); Class 1 obesity due to excess calories without serious comorbidity with body mass index (BMI) of 34.0 to 34.9 in adult; Urticaria from Last 3 Months Immunizations Name Administration Dates Next Due DTaP 5 08/25/2005, 2,2000, 001,2000 HPV Vaccine 9 Valent 02/29/2024,12/06/2018 Hep A, ped/adol 12/06/2018 Hep B, ped/adol 08/22/2001,2000,2000 Hib (PRP-T) 08/22/2001, 1,2000, 001 IPV 08/25/2005, 2,2000, 001 MMR 08/25/2005,05/24/2001 Meningococcal Conj (Menactra) MCV4P 12/06/2018,0 08/15/2012 Pneumococcal Conjugate 05/30/2004,2000,2000, 001 Tdap 02/29/2024,08/15/2012 Varicella 08/15/2012,05/24/2001 Family History Medical History Relation Name Comments No Known Problems Brother Jerry No Known Problems Father Marleni No Known Problems Mother Christen Relation Name Status Comments Brother Jerry Alive Father Marleni Alive Mother Christen Alive Social History Tobacco Use Types Packs/Day Years [...] there wasn't enough money for food? No 02/29/2024 Stable Housing Answer Date Recorded Are you worried that in the next 2 months you may not have stable housing? No 02/29/2024 Transportation Concerns Answer Date Rec orded In the last 12 months, have you or your family ever had to go without healthcare because you didn't have a way to get there? No 02/29/2024 Hazards in Home Answer Date Recorded Think about the place you li ve. Do you have problems with any of the following? Pests (mice or roaches), mold, no/not working smoke detectors, water leaks, no window guards. No 2023 Financing Utilities Answer Date Recorde d In the last 12 months, has t he electric, gas, oil, or water company threatened to shut off your services in your home? No 02/29/2024 Safety at Home Answer Date Recorded Are you or your family worried about feeling saf e in your home? No 02/29/2024 Outside Support Answer Date Recorded Do you feel that you need mo re support from other people or programs to help you care for yourself or your family? No 02/29/2024 Understanding Health Concerns Answer Da te Recorded Do you need help understandi ng your or your child's healthcare needs (diagnosis, medications, plan, etc.)? No 02/29/2024 Financing Health Concerns Answer Date R ecorded In the last 12 months, was t here a time when your child needed to see a doctor or get medications or supplies but could not because of cost? No 02/29/2024 Missing School or Work Answer Date Stefano rded Did you or your child miss s chool or work because of a health problem that could have been avoided? No 02/29/2024 Child Education Answer Date Recorded Do you have concerns about y our/your child's learning or behavior in school, preschool, or daycare? No 02/29/2024 Comments No Sex and Gender Information Value Date Recorded Sex Assigned at Female 02/29/2024 2:19 PM EST Legal Sex Female 6:32 PM EDT Gender Identity Female 02/29/2024 2:19 PM EST Sexual Orientation Bisexual 09/18/2022 3: 54 PM EDT Last Filed Vital Signs Vital Sign Reading Time Taken Comments Blood Pressure 122/72 02/29/2024 1:45 PM EST Pulse 98 09/18/2022 3:25 PM EDT Temperature 36.6 ??C (97.9 ??F) 02/29/2024 1:45 PM ES T Respiratory Rate - - Oxygen Saturation - - Inhaled Oxygen Concentration - - Weight 84.5 kg (186 lb 4.8 oz) 02/29/2024 1:45 P M EST Height 155.6 cm (5' 1.25 ) 02/29/2024 1:45 PM ES T Body Mass Index 34.91 02/29/2024 1:45 PM EST Plan of Treatment Upcoming Encounters Date Type Department Care Team (Late st Contact Info) Description 08/29/2024 9:00 AM EDT Clinical Support [facility] [place] [address] Health Maintenance Due Date Last Done Comments HIV Screening 2000 Syphilis Screening (consider for higher risk patients) 2000 Hepatitis A Vaccines (2 of 2 - 2-dose series) 06/08/2019 12/06/2018 Influenza Vaccines (#1) 2023 COVID-19 Vaccine ( - season) 2023 Chlamydia and Gonorrhea Screening 04/26/2024 02/29/2024, 10/05/2022, 09/18/2022, Additional history exists HPV Vaccines (3 - 3-dose series) 05/23/2024 02/29/2024, 12/06/2018 DTaP,Tdap,and Td Vaccines (8 - Td or Tdap) 02/28/2034 02/29/2024, 08/15/2012, 08/25/2005, Additional history exists HIB Vaccines Completed 08/22/2001, 09/25, 2000, Additional history exists Hepatitis B Vaccines Completed 08/22/2001, 2000, 2000 Pneumococcal Vaccine Completed 05/30/2004, 2000, 2000, Additional history exists IPV Vaccines Completed 08/25/2005, 12/25, 2000, Additional history exists MMR Vaccines Completed 08/25/2005, 05/24/2001 Varicella Vaccines Completed 08/15/2012, 05/24/2001 Meningococcal Vaccine Completed 12/06/2018, 013 Men B Vaccine Aged Out No longer elig aleshia based on patient's age to complete this topic Procedures * Due to [place] state law, this organization might not be sharing sensitive test results. Procedure Name Priority Date/Time Associated Diagnosis Comments CHLAMYDIA AND GONORRHEA, AMPLIFIED Routine 02/29/2024 3:06 PM EST Screen for sexually transmitted diseases POCT HEMOGLOBIN Routine 02/29/2024 2:32 PM EST Screening for iron deficiency anemia BRIEF BEHAVIORAL ASSESSMENT - NORMAL(PSC,PHQ9,VAN DERBILT,ETC) Routine 02/29/2024 1:56 PM EST Well adult exam from Last 3 Months Results * Due to [place] state law, this organization might not be sharing sensitive test results. * Chlamydia and Gonorrhea, Amplified (02/29/2024 3:06 PM EST) C trach SWETA Negative Negative [facility] N gonorrhoeae SWETA Negative Negative [facility] Swab (Vagina) 02/29/2024 3:0 6 PM EST 02/29/2024 Comment:Vagina Narrative [facility] - 03/01/2024 6:06 PM EST Performed at: ??01 - [facility] [address], [address], [place], [place] ??[id number] Dial Polisher: Rafa Salinas MD, Phone: ??[phone] Lula Hatfield NP LAB MICROBIOLOGY - GENERAL ORDER RACHAEL Final Result Performing Organization Address City/[facility]/ZIP Co de Phone Number [facility] [address] [place] [address] * POCT hemoglobin (02/29/2024 2:32 PM EST) Hemoglobin, POC 13.3 11.4 - 14.8 g/dL [facility] Blood (Blood) 02/29/2024 2:3 2 PM EST us Lula Hatfield NP POINT OF CARE TEST ORDERABLES Fi nal Result [facility] [address] [facility], [address] [place] [address] from Last 3 Months Insurance [facility] Care Teams Research Associate Quality Control Qc Relationship Specialty Start Date End Date Héctor Regan MD [address] [place] [address] [place] [address] PCP - General Pediatrics 05/16/21
[2024-05-23 08:24] VITALS: BP 120/84; PULSE 92; TEMP 36.9; O2SAT 94
--- NOTE | 2024-05-23 08:25 | MHC.OFFWIV ---
Intake Vital Signs 05/23/24 08:24 Weight 190 lb BP 120/84 Blood Pressure Location Lt brachial Position Sitting Pulse 92 Pulse Source Pulse Oximeter Temp 98.4 F Temp Source Oral Pulse Oximetry (%) 94 Oxygen Delivery Method Room Air Intake Visit Reasons: EP-body hives,on & off fever,headaches,sore throat Intake Note: Patient here for hives all over body that have been present since Wednesday. Patient Tobacco Use Status: Never used Tobacco Allergies acetaminophen [From Percocet] Adverse Reaction (Mild, Verified 05/23/24 08:26) Hives oxycodone [From Percocet] Adverse Reaction (Mild, Verified 05/23/24 08:26) Hives Do you need a note to return to daycare/school/sports/work: Yes HPI HPI Comments History of Present Illness Details This is a 24-year-old female presenting for evaluation of hives and fever that she has had since Wednesday. Patient states that her fever has been as high as 102.3? for which she is taking ibuprofen and Tylenol. Patient states ?I always get hives when I have a fever?. Patient has been taking Benadryl without total relief of her hives. Patient reports having a cough with wheezing but denies having any otalgia, pharyngitis, chest pain or shortness for breath. Patient states that she tested positive for COVID-19 approximately 2 weeks ago. [facility] Medical History (Updated 05/23/24 @ 09:05 by Kasey Granados PA-C) Rash and nonspecific skin eruption Social History Patient Tobacco Use Status: Never used Tobacco Review of Systems Const All systems reviewed & are unremarkable except as noted in HPI and below Denies body aches, Denies chills, Reports fatigue, Reports fever(s) and Reports malaise Eyes Reports as per HPI ENT Reports no additional complaints, Denies otalgia and Denies sore throat Card Reports no additional complaints, Denies dyspnea and Denies dyspnea on exertion Resp Reports no additional complaints, Denies chest congestion, Reports cough, Denies dyspnea, Denies dyspnea on exertion, Denies stridor and Reports wheezing GI Reports no additional complaints Reports no additional complaints Musc Reports no additional complaints Skin/Breast Reports pruritus and Reports lesions Neuro Reports no additional complaints Psych Reports no additional complaints Endo Reports no additional complaints and Reports fatigue Robin/Lymph Reports no additional complaints Aller/Immun Reports no additional complaints and Reports wheezing Physical Exam Vital Signs: Last Vital Signs Temp 98.4 F 05/23/24 08:24 Pulse 92 05/23/24 08:24 BP 120/84 05/23/24 08:24 Pulse Ox 94 05/23/24 08:24 Oxygen Delivery Method Room Air 05/23/24 08:24 Patient is afebrile. Const General: cooperative, healthy appearing, comfortable, no acute distress and well developed; No lethargic Nutritional Appearance: average body habitus Orientation/consciousness: patient oriented x3 and No lethargic Limitations: no limitations HEENT Head: Yes normal to inspection and Yes normocephalic Ears: hearing grossly normal bilaterally, external ears normal, TM's normal bilaterally and EAC's normal General nose exam: Normal external nose present Face and sinus: Yes normal facial exam and Yes sinuses nontender Mouth: Normal oral and palatal mucosa present and moist mucous membranes Throat: Yes posterior oropharynx normal (There is no edema, erythema or exudates of the posterior oropharynx) and Yes postnasal drainage Eyes General: appearance normal, both eyes and all related structures Neck Lymphatic: no lymphadenopathy noted Resp Effort & Inspection: normal respiratory effort, able to speak in complete sentences, no audible wheezes, no cough, no respiratory distress and not tachypneic Auscultation: clear to auscultation bilaterally Cardio Rate: regular rate Rhythm: regular rhythm Skin Other: There is widespread urticaria on the extremities throughout and anterior trunk and abdomen with evidence of manual excoriation; no evidence of a secondary cellulitis. Neuro General: patient oriented x3 Psych Appearance: grossly normal Mental Status: mental status grossly normal Insight: Good insight present (Psych) Judgement: Good judgement present (Psych) Assessment & Plan Assessment & Plan (1) Acute upper respiratory infection: Comment: SARS panel is ordered and results are pending. Code(s): J06.9 - Acute upper respiratory infection, unspecified Plan: Patient will continue with ibuprofen and Tylenol as needed for fevers, increase clear fluids daily. SARS panel is pending. (2) Hives: Comment: Patient states she is not getting relief from diphenhydramine and therefore hydroxyzine will be prescribed to use. Code(s): L50.9 - Urticaria, unspecified Plan: Hydroxyzine 25 mg 3-4 times daily as needed for pruritus and hives. Orders: Orders SARS-CoV2/FLU/RSV Today J06.9 - Acute upper respiratory infection, unspecified Medications: New hydroxyzine HCl 25 mg PO QID PRN 20 tabs 0RF itching Coding Level of Care Code Est Pt Level 4 (39402) Diagnoses Acute upper respiratory infection J06.9 Hives L50.9 Time Spent (min) 30
== END 2024-05-23 08:59 | disposition home or self-care (01) ==
PROVIDERS: PCP Internal Medicine; Visit Provider Physician Assistant
DX: J06.9 Acute upper respiratory infection, unspecified (principal); L50.9 Urticaria, unspecified

== ENCOUNTER 2024-09-20 14:27 | Outpatient (AMB) | payer OTHER, SELFPAY ==
[2024-09-20 14:46] VITALS: BP 120/80; PULSE 82; TEMP 36.8; O2SAT 97; BMI 34.8
--- NOTE | 2024-09-20 14:46 | MHC.OFFWIV ---
Intake Vital Signs 09/20/24 14:46 Height 5 ft 2 in Weight 190 lb 6 oz BMI 34.8 BP 120/80 Blood Pressure Location Rt brachial Position Sitting Pulse 82 Pulse Source Pulse Oximeter Temp 98.3 F Temp Source Oral Pulse Oximetry (%) 97 Oxygen Delivery Method Room Air Intake Visit Reasons: EP Stye/pink eye? Patient Tobacco Use Status: Never used Tobacco Allergies acetaminophen [From Percocet] Adverse Reaction (Mild, Verified 09/20/24 14:46) Hives oxycodone [From Percocet] Adverse Reaction (Mild, Verified 09/20/24 14:46) Hives Do you need a note to return to daycare/school/sports/work: Yes HPI HPI Comments History of Present Illness Details 24 yo female with a history of hives and URI who presents today with a red and painful eye on the right. She states that she noticed a couple days ago that she had a bump on the right lower eyelid. She states that her lower eyelid is swollen and painful. She states that she has been using a hot compress with no relief. She has no discharge. She has no eye trauma. She denies fever, chills, REYNAGA, visual changes, discharge, pain, or contact lens. 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 She has no sick contacts. [facility] Medical History (Updated 05/23/24 @ 09:05 by Kasey Voss PA-C) Rash and nonspecific skin eruption Social History Patient Tobacco Use Status: Never used Tobacco Review of Systems Const Reports as per HPI Eyes Denies blurry vision, Denies diplopia, Denies itchy eyes, Denies eye pain, Denies requires corrective lenses and Denies photophobia ENT Reports no additional complaints Card Reports as per HPI Resp Reports as per HPI Aller/Immun Denies itchy eyes Physical Exam Vital Signs: Last Vital Signs Temp 98.3 F 09/20/24 14:46 Pulse 82 09/20/24 14:46 BP 120/80 09/20/24 14:46 Pulse Ox 97 09/20/24 14:46 Oxygen Delivery Method Room Air 09/20/24 14:46 BMI result Body Mass Index 34.8 Const General: healthy appearing, well developed, alert and awake; No acute distress HEENT Head: Yes normal to inspection Eyes Eyelids: Yes eyelid abnormality (Small hard tender nodule noted on the rt lower eyelid) Conjunctivae: conjunctivae normal Sclerae: sclerae normal Corneas: corneas normal Pupils: Equal, round and reactive pupils present Direct Ophthalmoscopy: No photophobia Resp Effort & Inspection: normal respiratory effort Auscultation: clear to auscultation bilaterally Cardio Rate: regular rate Rhythm: regular rhythm Neuro Cranial nerves: Yes Equal, round and reactive pupils present Assessment & Plan Assessment & Plan (1) Hordeolum externum of right lower eyelid: Code(s): H00.012 - Hordeolum externum right lower eyelid Plan: Most likely hordeolum vs chalazion vs conjunctivitis plan- -warm compresses to the area -Tylenol or Motrin as needed -polymyxin B drops to the right eye 4 times a day for 7 days -f/u with eye doctor as needed Medications: New polymyxin B sulf-trimethoprim 10,000 unit- 1 mg/mL 1 drp ophthalmic-Right QID 7 days 10 mL 0RF Coding Level of Care Code Est Pt Level 3 (96487) Diagnoses Hordeolum externum of right lower eyelid H00.012
--- OUTSIDE RECORDS SUMMARY | 2024-09-20 15:21 | XMS_ITS | Encounter Summary ---
Author Organization [facility] Address [address] [place] [address] Phone Care Team Providers Care Electronic Gluer Name Role Phone Héctor Regan MD Primary Care Provider Reason for Visit * Reason Comments Med Refill Encounter Details Date Type Department Care Team (Late st Contact Info) Description 04/02/2020 Refill [facility] [address] [facility] [place] [address] Debi Manning MD [address] [place] [address] Anxiety Social History Tobacco Use Types Packs/Day [...] as of this encounter Plan of Treatment Not on file documented as of this encounter Visit Diagnoses Diagnosis Anxiety Anxiety state, unspecified documented in this encounter Care Teams Electronic Gluer Relationship Specialty Start Date End Date Héctor Regan MD [facility] [facility] [place] [address] PCP - General Pediatrics 05/16/21 07/26/24 documented as of this encounter
== END 2024-09-20 15:16 | disposition home or self-care (01) ==
PROVIDERS: PCP Internal Medicine; Visit Provider Physician Assistant Medical
DX: H00.012 Hordeolum externum right lower eyelid (principal)

== ENCOUNTER → 2024-09-20 14:27 | Outpatient (BNVA) | payer OTHER, SELFPAY | PROVIDERS: PCP Internal Medicine; Visit Provider Physician Assistant Medical | DX: Z13.89 Encounter for screening for other disorder (principal) ==

== ENCOUNTER 2024-10-19 08:03 | Outpatient (AMB) | payer OTHER, SELFPAY ==
--- OUTSIDE RECORDS SUMMARY | 2024-10-19 08:10 | XMS_ITS | Encounter Summary ---
Author Organization [facility] Address [address] [place] [address] Phone Care Team Providers Care Psychiatric Attendant Name Role Phone Héctor Regan MD Primary Care Provider [phone] Reason for Visit * Reason Comments Med Refill Encounter Details Date Type Department Care Team (Late st Contact Info) Description 04/02/2020 Refill [facility] [address] [facility] [place] [address] Debi Manning MD [address] [place] [address] Anxiety Social History Tobacco Use Types Packs/Day [...] unspecified documented in this encounter Care Teams Psychiatric Attendant Relationship Specialty Start Date End Date Héctor Regan MD [facility] [facility] [place] [address] PCP - General Pediatrics 05/16/21 07/26/24 documented as of this encounter
[2024-10-19 08:11] VITALS: BP 120/80; PULSE 73; TEMP 36.8; O2SAT 98; BMI 34.6
--- NOTE | 2024-10-19 08:11 | AM.OFFWIN_ITS ---
Intake Vital Signs 10/19/24 08:11 Height 5 ft 2 in Weight 189 lb BMI 34.6 BP 120/80 Blood Pressure Location Lt brachial Position Sitting Pulse 73 Pulse Source Pulse Oximeter Temp 98.2 F Temp Source Oral Pulse Oximetry (%) 98 Oxygen Delivery Method Room Air Intake Visit Reasons: EP-rt eye issues Intake Note: pt is here for right eye, swelling with discharge. patient is unless if its eye lash mites due to lash extensions after going into river Patient Tobacco Use Status: Never used Tobacco Allergies acetaminophen (From Percocet) Adverse Reaction (Mild, Verified 10/19/24 08:14) Hives oxycodone (From Percocet) Adverse Reaction (Mild, Verified 10/19/24 08:14) Hives Do you need a note to return to daycare/school/sports/work: No HPI HPI Comments History of Present Illness Details 24 y/o female patient who presents to [facility] in clinic with c/o Right eye redness/pain and swelling. She did remove Fake eyelashes yesterday and noticed ?Termite on the lashes according to her mother. Pt was last seen here 09/20 for similar concern and was treated with an Eye Abx with good resolution. [facility] Medical History (Updated 05/23/24 @ 09:05 by Kasey Voss PA-C) Rash and nonspecific skin eruption Social History Patient Tobacco Use Status: Never used Tobacco Review of Systems Const All systems reviewed & are unremarkable except as noted in HPI and below Physical Exam Vital Signs: Last Vital Signs Temp 98.2 F 10/19/24 08:11 Pulse 73 10/19/24 08:11 BP 120/80 10/19/24 08:11 Pulse Ox 98 10/19/24 08:11 Oxygen Delivery Method Room Air 10/19/24 08:11 BMI result Body Mass Index 34.6 Const General: comfortable and no acute distress Nutritional Appearance: overweight Orientation/consciousness: patient oriented x3 Eyes Eyelids: Yes eyelid abnormality (Lower Lid Swollen and tender) Conjunctivae: conjunctival abnormal right conjunctival injection and discharge purulent Corneas: corneas normal Pupils: Equal, round and reactive pupils present EOM: EOMs intact bilaterally Neuro General: patient oriented x3, gait normal and moves all extremities Cranial nerves: Yes Equal, round and reactive pupils present Psych Speech and movement: Normal speech and movement present Assessment & Plan Assessment & Plan (1) Hordeolum externum of right lower eyelid: Code(s): H00.012 - Hordeolum externum right lower eyelid Plan: Ordered Eye Abx Maintain good eye and hnads Hygiene Avoid using Fake eyelashes Medications: New erythromycin 0.5 inches ophthalmic (eye) BID 3.5 grams 0RF H00.012 - Hordeolum externum right lower eyelid Coding Level of Care Code Est Pt Level 4 (99752) Diagnoses Hordeolum externum of right lower eyelid H00.012 Time Spent (min) 20
== END 2024-10-19 09:11 | disposition home or self-care (01) ==
PROVIDERS: PCP Internal Medicine; Visit Provider Nurse Practitioner Family
DX: H00.012 Hordeolum externum right lower eyelid (principal)

== ENCOUNTER → 2024-10-19 08:03 | Outpatient (BNVA) | payer OTHER, SELFPAY | PROVIDERS: PCP Internal Medicine; Visit Provider Nurse Practitioner Family | DX: Z13.89 Encounter for screening for other disorder (principal) ==

== ENCOUNTER 2025-01-01 07:40 | Outpatient (REF) | payer OTHER, SELFPAY ==
[2025-01-01 15:15] LABS: Resp Syncy Virus RNA Qual PCR NEGATIVE (Negative); SARS COV2 PCR INHOUSE NEGATIVE (Negative)
== END 2025-01-01 07:41 | disposition home or self-care (01) ==
LOC: HO.LAB 07:40
PROVIDERS: PCP Internal Medicine; Visit Provider Nurse Practitioner Family
DX: J06.9 Acute upper respiratory infection, unspecified (principal); R05.9 Cough, unspecified
CPT/HCPCS: 87637

== ENCOUNTER 2025-01-01 07:40 | Outpatient (AMB) | payer OTHER, SELFPAY ==
[2025-01-01 07:41] VITALS: BP 120/72; PULSE 102; RESP 17; TEMP 36.8; O2SAT 99; BMI 34.2
--- NOTE | 2025-01-01 07:41 | AM.OFFWIN_ITS ---
Intake Vital Signs 01/01/25 07:41 Height 5 ft 2 in Weight 187 lb BMI 34.2 BP 120/72 Blood Pressure Location Lt brachial Position Sitting Respiration 17 Pulse 102 H Pulse Source Pulse Oximeter Temp 98.2 F Temp Source Oral Pulse Oximetry (%) 99 Oxygen Delivery Method Room Air Intake Visit Reasons: EP Trouble breathing, chest cold Intake Note: Pt is here today c/o trouble breathing and a chest cold Patient Tobacco Use Status: Never used Tobacco Allergies acetaminophen (From Percocet) Adverse Reaction (Mild, Verified 01/01/25 07:41) Hives oxycodone (From Percocet) Adverse Reaction (Mild, Verified 01/01/25 07:41) Hives Medication List - Last Reconciled 01/01/25 by Edna Turner NP albuterol sulfate 90 mcg/actuation 1 inh inhalation QID PRN cetirizine (Zyrtec) 10 mg PO DAILY PRN drospirenone-ethinyl estradiol 3-0.02 mg (Suki (28)) 1 tab PO DAILY famotidine 20 mg PO BID hydroxyzine HCl 25 mg PO QID PRN sertraline mg PO HPI HPI Comments History of Present Illness Details 24 y/o Female patient who presents to [facility] in clinic with c/o Cough and chest tightness for 2 days now. 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 Denies Fevers, chills, nausea and vomiting. Reports good appetite and Hydration. She has been using her Neb at home with some mild relief. [facility] Medical History (Updated 01/01/25 @ 07:58 by Edna Turner NP) Cough Rash and nonspecific skin eruption Social History Patient Tobacco Use Status: Never used Tobacco Review of Systems Const All systems reviewed & are unremarkable except as noted in HPI and below Physical Exam Vital Signs: Last Vital Signs Temp 98.2 F 01/01/25 07:41 Pulse 102 H 01/01/25 07:41 Resp 17 01/01/25 07:41 BP 120/72 01/01/25 07:41 Pulse Ox 99 01/01/25 07:41 Oxygen Delivery Method Room Air 01/01/25 07:41 BMI result Body Mass Index 34.2 Const General: no acute distress Nutritional Appearance: overweight Orientation/consciousness: patient oriented x3 Resp Effort & Inspection: normal respiratory effort and Actively coughing Quality: wet Auscultation: clear to auscultation bilaterally, no crackles, no rales, no rhonchi and no wheezes Cardio Heart sounds: S1 normal heart sound present and S2 normal heart sound present Neuro General: patient oriented x3, gait normal and moves all extremities Psych Speech and movement: Normal speech and movement present Assessment & Plan Assessment & Plan (1) Acute upper respiratory infection: Code(s): J06.9 - Acute upper respiratory infection, unspecified Plan: Ordered SARs today. OTC remedies Rest and Hydrate well with warm fluids. (2) Cough: Code(s): R05.9 - Cough, unspecified Plan: Ordered SARs today. OTC remedies Rest and Hydrate well with warm fluids. B/L Lungs CTA. Orders: Orders SARS-CoV2/FLU/RSV Today J06.9 - Acute upper respiratory infection, unspecified Medications: New dextromethorphan polistirex ER (Delsym 12 hour) 10 mL PO Q12H 89 mL 0RF cough R05.9 - Cough, unspecified benzonatate 200 mg (2 x 100 mg) PO BID 60 caps 0RF J06.9 - Acute upper respiratory infection, unspecified, R05.9 - Cough, unspecified Changed From albuterol sulfate 90 mcg/actuation 1 inh inhalation QID PRN 6.7 grams 1RF shortness of breath or wheezing J06.9 - Acute upper respiratory infection, unspecified, R05.9 - Cough, unspecified To albuterol sulfate 90 mcg/actuation 2 inhalations inhalation Q4-6H PRN 8.5 grams 1RF shortness of breath or wheezing J06.9 - Acute upper respiratory infection, unspecified, R05.9 - Cough, unspecified Coding Level of Care Code Est Pt Level 4 (91682) Diagnoses Acute upper respiratory infection J06.9 Cough R05.9 Time Spent (min) 20
--- OUTSIDE RECORDS SUMMARY | 2025-01-01 07:43 | XMS_ITS | Clinical Summary ---
Author Organization [facility] Address [address] [place] [address] Phone Care Team Providers Care Certified Home Health Aide Name Role Phone Unavailable Primary Care Provider Unavailabl e Allergies Active Allergy Reactions Criticality Noted Date [...] 4 Active sertraline 50 MG tabletIndication s:Anxiety Take 1.5 tablets (75 mg total) by mouth daily. 135 tablet 5 Active Active Problems Problem Noted Date Diagnosed Date PCOS (polycystic ovarian syndrome) 02/29/2024 Assessment & Plan (02/29/2024 4:33 PM EST): Dx by [facility] recently as reported by patient Started on [...] PCOS ordered today Should also talk with [facility] about this Well adult exam 09/18/2022 Assessment & Plan (09/18/2022 4:31 PM EDT): Dawn is doing well. She will continue to work toward a healthy diet and staying active She will call [facility] for an apt. Anxiety well controlled. Continue [...] from 8 surgeries, Dr. Giancarlo Bah, at [facility]. Insomnia disorder 02/01/2020 Anxiety 12/31/2019 Assessment & [...] call In 2 weeks to check in [facility] in June Assessment & Plan (03/14/2021 5:42 [...] Encounters Date Type Department Care Team Description 10/31/2024 Orders Only [facility] [address] [place] [address] [place] [address] Lula Hatfield, LUIGI Anxiety 10/31/2024 Telephone [facility] [address] [place] [address] [place] [address] Luly Salvador MA 10/02/2024 Refill [facility] [address] [place] [address] Héctor Regan MD Anxiety from Last 3 Months Immunizations Immunization Administration Dates Next Due DTaP 5 08/25/2005, [...] 98 09/18/2022 3:25 PM EDT Temperature 36.6 C (97.9 F) 02/29/2024 1:45 PM EST Respiratory Rate - - Oxygen Saturation - - Inhaled Oxygen Concentration - - Weight 84.5 kg (186 lb 4.8 oz) 02/29/2024 1:45 P M EST Height 155.6 cm (5' 1.25 ) 02/29/2024 1:45 PM ES T Body Mass Index 34.91 02/29/2024 1:45 PM EST Plan of Treatment Health Maintenance Due Date Last Done Comments HIV Screening 2000 Syphilis Screening (consider for higher risk patients) 2000 Hepatitis A Vaccines (2 of 2 - 2-dose series) 06/08/2019 12/06/2018 Chlamydia and Gonorrhea Screening 04/26/2024 02/29/2024, 10/05/2022, 09/18/2022, Additional history exists HPV Vaccines (3 - 3-dose series) 05/23/2024 02/29/2024, 12/06/2018 Influenza Vaccines (#1) 2024 COVID-19 Vaccine ( season) 2024 DTaP,Tdap,and Td Vaccines (8 - Td or [...] B Vaccine Aged Out No longer elig ible based on patient's age to complete this topic Procedures * Due to [place] [employer] law, this organization might not be sharing sensitive test results. Procedure Name Priority Date/Time Associated Diagnosis Comments CHLAMYDIA AND GONORRHEA, AMPLIFIED Routine 02/29/2024 3:06 PM EST Screen for sexually transmitted diseases from Last 3 Months or Most Recently Relevant to Health Maintenance Results * Due to [place] [employer] law, this organization might not be sharing sensitive test results. * Chlamydia and Gonorrhea, Amplified (02/29/2024 3:06 PM EST) C trach SWETA Negative Negative [facility] N gonorrhoeae SWETA Negative Negative [facility] Swab (Vagina) 02/29/2024 3:0 6 PM EST 02/29/2024 Comment:Vagina Narrative [facility] - 03/01/2024 6:06 PM EST Performed at: - [facility] [address], [address], [place], [place] [id number] Entry Level Recruiter: Rafa Salinas MD, Phone: [phone] us Lula Hatfield NP LAB MICROBIOLOGY - GENERAL ORDER RACHAEL Final Result [facility] [address] [place] [address] from Last 3 Months or Most Recently Relevant to Health Maintenance Insurance [facility] COMMERCIAL [facility] [employer]
--- OUTSIDE RECORDS SUMMARY | 2025-01-01 07:43 | XMS_ITS | Encounter Summary ---
Author Organization [facility] Address [address] [place] [address] Phone Care Team Providers Care Sales Hunter Name Role Phone Héctor Regan MD Primary Care Provider [phone] Reason for Visit * Reason Onset Date Comments Med Refill 09/02/2020 Encounter Details Date Type Department Care Team (Late st Contact Info) Description 09/02/2020 Refill [facility] [address] [place] [address] [place] [address] Giancarlo Kaur MD [address] [place] [address] [place] [address] Anxiety Social History Tobacco Use Types Packs/Day [...] unspecified documented in this encounter Care Teams Sales Hunter Relationship Specialty Start Date End Date Héctor Regan MD [facility] [place] [address] PCP - General Pediatrics 05/16/21 07/26/24 documented as of this encounter
--- OUTSIDE RECORDS SUMMARY | 2025-01-01 07:43 | XMS_ITS | Encounter Summary ---
Author Organization [facility] Address [address] [place] [address] Phone Care Team Providers Care Defensive Fire Control Systems Operator Name Role Phone Héctor Regan MD Primary Care Provider [phone] Reason for Visit * Reason Comments Med Refill Encounter Details Date Type Department Care Team (Late st Contact Info) Description 07/27/2020 Refill [facility] [address] [place] [address] [place] [address] Héctor Regan MD [address] [place] [address] [place] [address] Anxiety Social History Tobacco Use Types Packs/Day [...] Aguirre MA - 07/29/2020 9:58 AM EDT [facility] 05/09/[address] Regan's absence. documented in this encounter Plan of Treatment Not on file documented as of this encounter Visit Diagnoses Diagnosis Anxiety Anxiety state, unspecified documented in this encounter Care Teams Defensive Fire Control Systems Operator Relationship Specialty Start Date End Date Héctor Regan MD [address] [place] [address] [place] [address] PCP - General Pediatrics 05/16/21 07/26/24 documented as of this encounter
--- OUTSIDE RECORDS SUMMARY | 2025-01-01 07:43 | XMS_ITS | Patient Health Record ---
Author Organization [facility] Address [address] [facility] [address] [facility] [address] [place] [address] Care Team Providers Care Bioinformatics Developer Name Role Phone Yenifer Villar Unavailable [phone] Reason For Referral No Information Plan Of Treatment No Information Insurance Providers Payer Name Payer Address Payer Phone Subscriber Number Group Number Insured Name Patient Relationship to Insured Coverage Start Date Coverage End Date [facility] [address] [place] [address] [id number] AURELIO VEGA Self - patient is the insured
--- OUTSIDE RECORDS SUMMARY | 2025-01-01 07:43 | XMS_ITS | Clinical Summary ---
Author Organization [facility] Address [address] [place] [address] Phone Care Team Providers Care Banking Services Officer Name Role Phone Héctor Regan MD Primary Care Provider [phone] Allergies Active Allergy Reactions Criticality Noted Date Comments Oxycodone-Acetaminophen 08/29/2020 Medications therapeutic multivitamin tablet Take 1 tablet by mouth daily. Active sertraline (ZOLOFT) 50 MG tablet Take 50 mg by mouth. 04/14/2023 Active ALPRAZolam (XANAX) 1 MG tablet Take 1 tablet (1 mg total) by mouth daily as needed. 4 tablet 08/31/2023 Active drospirenone-ethi nyl estradioL 3-0.02 mg per tablet Take 1 tablet by mouth daily. 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 I added separately the request at draw 17 hydroxyprogesterone with the cortisol draws, and I have called the medical day stay to talk to when the nurses to make sure that that particular lab is done as well. I also reminded Gary to be certain that 2 hormone levels are drawn with each blood draw so that this is not missed Hirsutism 08/11/2023 Overview (09/17/2023): Gradual onset, significant amount of facial hair in particular, very bothersome Elevated free testosterone at outside lab Repeat at [facility] elevated total testosterone with normal sex hormone binding globulin, and elevated 17 hydroxyprogesterone Normal response 17-)HP to ACTH stim Normal baseline cortisol (sl high response to ACTH) Assessment & Plan (06/07/2024 8:59 AM EST): Repeat T ordered again today, she will have drawn Doing well on combined OCP with drospirinone Is trying to establish with GP to follow up on these other labs, or see endocrine prn Assessment & Plan (09/08/2023 10:27 AM EDT): Cortisone stim test has been scheduled Is taking a drospirenone combined oral contraceptive, can consider adding spironolactone although need to be extra cautious about potassium and monitor levels periodically. Assessment & Plan (08/11/2023 5:32 PM EDT): Discussed that this could be part of a polycystic ovary type syndrome. Recommend additional testing as noted below also to assess for any insulin resistance in case this is more of a PCOS picture. Oral contraceptives can both reduce overall testosterone and increase sex hormone binding globulin, in order to reduce free testosterone. Also a treatment for polycystic ovary syndrome if present Recommend trying a drospirenone containing combined oral contraceptive, cautioned about excess potassium intake, If not effective enough, could use a different control pill and add spironolactone for its antitestosterone effects which are a bit stronger than the drospirenone Elevated prolactin level 08/11/2023 Overview (09/17/2023): Minimal elevation at 37, where outside lab normal goes up to 33 Repeat at [facility] 42 Normal head MRI Plan repeat in 3-6 months (of PRL level) Assessment & Plan (06/07/2024 8:59 AM EST): Will repeat this today Assessment & Plan (09/08/2023 10:25 AM EDT): MRI for imaging the pituitary gland has already been ordered and scheduled. Has started oral contraceptives for other indications, so cabergoline may not be warranted depending on results of the head MRI. Assessment & Plan (08/11/2023 5:31 PM EDT): Recommend repeating this at a fasting basis, if significant elevated need to pursue head imaging to rule out an adenoma Menorrhagia with regular cycle 08/11/2023 Assessment & Plan (08/11/2023 5:33 PM EDT): Will resume oral contraceptive use, also for the benefits for the hirsutism and possible PCOS. Recommend repeating the CBC after couple months on this, because my concern is there may be an underlying polycythemia vera Groin lump 07/25/2019 Assessment & Plan (07/25/2019 12:37 PM EDT): Recommend daily soaks; come into office in one week if note getting smaller, call sooner prn Family History Medical History Relation Comments Asthma Father No Known Problems Maternal Grandfather No Known Problems Maternal Grandmother Asthma Mother Heart disease Paternal Grandfather No Known Problems Paternal Grandmother Relation Status Comments Father Maternal Grandfather Maternal Grandmother Mother Paternal Grandfather Paternal Grandmother Social History Tobacco Use Types Packs/Day Years Used Date Smoking Tobacco: Never Smokeless Tobacco: Never Tobacco Cessation:Counseling Given: Not Answered Alcohol Use Standard Drinks/Week Comments Yes 0 (1 standard drink = 0.6 oz pur e alcohol) Education Answer Date Recorded Are you interested in more education? Not on miles e 08/21/2022 Are you concerned about learning? Not on file 08/21/2022 No 08/21/2022 No 08/21/2022 Digital Access Answer Date Recorded No 09/21/2022 No 09/21/2022 Reliable internet access at home? Not on file 09/21/2022 Device with a working camera? Not on file Comments No Sex and Gender Information Value Date Recorded Sex Assigned at Not on file Legal Sex Female 10:24 PM EDT Gender Identity Not on file Sexual Orientation Not on file Last Filed Vital Signs Vital Sign Reading Time Taken Comments Blood Pressure 112/72 06/07/2024 7:59 AM EST Pulse 69 09/13/2023 8:25 AM EDT Temperature 35.8 C (96.4 F) 09/13/2023 8:25 AM EDT Respiratory Rate - - Oxygen Saturation 100% 09/13/2023 8:25 AM EDT Inhaled Oxygen Concentration - - Weight 87.1 kg (192 lb) 06/07/2024 7:59 AM EST Height 154.9 cm (5' 1 ) 09/09/2023 3:15 PM EDT Body Mass Index 36.28 09/09/2023 3:15 PM EDT Plan of Treatment Health Maintenance Due Date Last Done Comments DEPRESSION SCREENING 2012 SMOKING Hx and SMOKELESS TOBACCO SCREENING 2013 HEPATITIS C SCREENING 2018 HIV ONE-TIME SCREENING (18-6 5 YEARS) 2018 HPV VACCINES (2 - 3-dose series) 03/28/2024 02/29/2024 INFLUENZA VACCINE (#1) 2024 COVID-19 VACCINE (1 - 2023-2 5 season) 2024 PAP SMEAR 06/07/2027 06/07/2024 Adult Td,Tdap Booster 02/28/2034 02/29/2024 , 08/15/2012 HEPATITIS A VACCINES Aged Out No long er eligible based on patient's age to complete this topic HIB VACCINES Aged Out No longer eligi ble based on patient's age to complete this topic MENINGOCOCCAL VACCINES (ACWY) Aged Out No longer eligible based on patient's age to complete this topic MENINGOCOCCAL VACCINES (B) Aged Out N o longer eligible based on patient's age to complete this topic PNEUMOCOCCAL VACCINES (0-49 years) Aged Out No longer eligible b ased on patient's age to complete this topic Medical Devices Not on file Procedures Procedure Name Priority Date/Time Associated Diagnosis Comments PAP TEST Routine 06/07/2024 12:00 AM EST from Last 3 Months or Most Recently Relevant to Health Maintenance Results * Pap Test (06/07/2024 12:00 AM EST) 06/07/2024 06/08/2024 10: 10 AM EST Narrative SEE NARRATIVE - 06/13/2024 10:29 AM EST [address] [address] Electromechanisms Design Drafter: Sanjay Cortez MD SUPERVISOR CEREAL Cytology Report FINAL DIAGNOSIS A. PAP SMEAR (THIN PREP) CE: SPECIMEN ADEQUACY: Satisfactory for evaluation; transformation zone absent/insufficient. INTERPRETATION: NEGATIVE FOR INTRAEPITHELIAL LESION OR MALIGNANCY. This specimen was analyzed by the automated ThinPrep Imaging System ([employer] and the selected workman were reviewed by a mid level practitioner. Electronically Signed Out By: PAOLA Holt(ASCP) The Pap test is a screening test primarily for squamous cancers and precursors and has associated false-negative and false-positive results. New technologies such as liquid-based preparations may decrease but will not eliminate all false-negative results. Regular sampling and follow-up of unexplained clinical signs and symptoms are recommended to minimize false negative results. CLINICAL HISTORY Date of Last Menstrual Period: Not Provided Menstrual History: Unknown Contraceptive History: BCPs Other Clinical Conditions: Screening Pap SPECIMEN SOURCE A: PAP SMEAR (THIN PREP) CE Patient Name: ANDREAS VEGAIE : 2000 (Age: 24) Sex: F [facility] Location: [facility] Date of Collection: 06/07/2024 Date of Reported: 06/13/2024 10:29 Results to: Yenifer Villar MD Yenifer Villar MD CYTOLOGY ORDERABLES Final Result SEE NARRATIVE from Last 3 Months or Most Recently Relevant to Health Maintenance Insurance [facility] [place] [place] [address]O [facility] [address] [place] [address] [facility] [address] [place], [place] [address]O Care Teams Banking Services Officer Relationship Specialty Start Date End Date Héctor Regan MD [facility] [facility] [address] PCP - General 04/29/17 Additional Source Comments The information contained in this document represents components of the legal health record. It is not the complete legal health record.[facility]
--- OUTSIDE RECORDS SUMMARY | 2025-01-01 07:43 | XMS_ITS | Encounter Summary ---
Author Organization [facility] Address [address] [place] [address] Phone Care Team Providers Care Order Processor Name Role Phone Héctor Regan MD Primary Care Provider [phone] Reason for Visit * Reason Comments Med Refill Encounter Details Date Type Department Care Team (Late st Contact Info) Description 04/02/2020 Refill [facility] [address] [place] [address] Debi Manning MD [address] [place] [address] Anxiety Social History Tobacco Use Types Packs/Day [...] unspecified documented in this encounter Care Teams Order Processor Relationship Specialty Start Date End Date Héctor Regan MD [facility] [facility] [place] [address] PCP - General Pediatrics 05/16/21 07/26/24 documented as of this encounter
--- OUTSIDE RECORDS SUMMARY | 2025-01-01 07:44 | XMS_ITS | Encounter Summary ---
Author Organization [facility] Address [address] [place] [address] Phone Care Team Providers Care Gasoline Engine Inspector Name Role Phone Héctor Regan MD Primary Care Provider [phone] Encounter Details Date Type Department Care Team (Late st Contact Info) Description 07/09/2017 Procedure [facility] [address] [place] [address] Social History Tobacco Use Types Packs/Day Years Used Date Smoking Tobacco: Never Assessed Comments Unknown Sex and Gender Information Value Date Recorded Sex Assigned at Not on file Legal Sex Female 10:24 PM EDT Gender Identity Not on file Sexual Orientation Not on file documented as of this encounter Plan of Treatment Not on file documented as of this encounter Visit Diagnoses Not on filedocumented in this encounter Care Teams Gasoline Engine Inspector Relationship Specialty Start Date End Date Héctor Regan MD [facility] [place] [address] PCP - General 04/29/17 documented as of this encounter Additional Source Comments The information contained in this document represents components of the legal health record. It is not the complete legal health record.[facility]
--- OUTSIDE RECORDS SUMMARY | 2025-01-01 07:44 | XMS_ITS | Encounter Summary ---
Author Organization [facility] Address [address] [place] [address] Phone Care Team Providers Care Make Ready Mechanic Name Role Phone Héctor Regan MD Primary Care Provider [phone] Encounter Details Date Type Department Care Team (Late st Contact Info) Description 07/09/2017 [facility] [address] [place] [address] Social History Tobacco Use Types Packs/Day Years [...] on filedocumented in this encounter Care Teams Make Ready Mechanic Relationship Specialty Start Date End Date Héctor Regan MD [facility]6 [facility] [place] [address] PCP - General 04/29/17 documented as of this encounter Additional Source Comments The information contained in this document represents components of the legal health record. It is not the complete legal health record.[facility]
--- OUTSIDE RECORDS SUMMARY | 2025-01-01 07:44 | XMS_ITS | Encounter Summary ---
Author Organization [facility] Address [address] [place] [address] Phone Care Team Providers Care Steam Crane Operator Name Role Phone Héctor Regan MD Primary Care Provider [phone] Reason for Visit * Reason Comments Med Refill Encounter Details Date Type Department Care Team (Late st Contact Info) Description 09/10/2022 Refill [facility] [address] [place] [address] [place] [address] Héctor Regan MD [address] [place] [address] [place] [address] Anxiety Social History Tobacco Use Types Packs/Day [...] unspecified documented in this encounter Care Teams Steam Crane Operator Relationship Specialty Start Date End Date Héctor Regan MD [facility]6 [place] [address] PCP - General Pediatrics 05/16/21 07/26/24 documented as of this encounter
--- OUTSIDE RECORDS SUMMARY | 2025-01-01 07:44 | XMS_ITS | Encounter Summary ---
Author Organization [facility] Address [address] [place] [address] Phone Care Team Providers Care Foundation Relations Director Name Role Phone Héctor Regan MD Primary Care Provider [phone] Reason for Visit * Reason Comments Med Refill Encounter Details Date Type Department Care Team (Late st Contact Info) Description 01/05/2021 Refill [facility] [place] [address] Debi Manning MD [address] [place] [address] Anxiety Social History Tobacco Use Types Packs/Day [...] unspecified documented in this encounter Care Teams Foundation Relations Director Relationship Specialty Start Date End Date Héctor Regan MD [facility] [place] [address] PCP - General Pediatrics 05/16/21 07/26/24 documented as of this encounter
--- OUTSIDE RECORDS SUMMARY | 2025-01-01 07:44 | XMS_ITS | Encounter Summary ---
Author Organization [facility] Address [address] [place] [address] Phone Care Team Providers Care Spring Production Supervisor Name Role Phone Héctor Regan MD Primary Care Provider [phone] Reason for Visit * Reason Comments Med Change Request Encounter Details Date Type Department Care Team (Late st Contact Info) Description 04/28/2022 [facility] [address] [place] [address] [place] [address] Héctor Regan MD [address] [place] [place] [address] [place] [address] Anxiety Social History Tobacco Use Types Packs/Day [...] unspecified documented in this encounter Care Teams Spring Production Supervisor Relationship Specialty Start Date End Date Héctor Regan MD [facility] [place] [address] PCP - General Pediatrics 05/16/21 07/26/24 documented as of this encounter
--- OUTSIDE RECORDS SUMMARY | 2025-01-01 07:44 | XMS_ITS | Encounter Summary ---
Author Organization [facility] Address [address] [place] [address] Phone Care Team Providers Care Project Accountant Name Role Phone Héctor Regan MD Primary Care Provider [phone] Encounter Details Date Type Department Care Team (Late st Contact Info) Description 07/09/2017 Procedure [facility] [address] [place] [address] Social History Tobacco Use Types Packs/Day Years [...] on filedocumented in this encounter Care Teams Project Accountant Relationship Specialty Start Date End Date Héctor Regan MD [facility]6 [facility] [place] [address] PCP - General 04/29/17 documented as of this encounter Additional Source Comments The information contained in this document represents components of the legal health record. It is not the complete legal health record.[facility]
--- OUTSIDE RECORDS SUMMARY | 2025-01-01 07:44 | XMS_ITS | Encounter Summary ---
Author Organization [facility] Address [address] [place] [address] Phone Care Team Providers Care Steel Rod Buster Name Role Phone Unavailable Primary Care Provider Unavailabl e Encounter Details Date Type Department Care Team (Late st Contact Info) Description 10/31/[address] [place] [address] [place] [place] [address] Social History Tobacco Use Types Packs/Day Years [...] encounter Miscellaneous Notes * Telephone Encounter - Luly Salvador MA - 10/31/2024 2:09 PM EDT Yes 75mg daily. * Telephone Encounter - Luly Salvador MA - 10/31/2024 1:10 PM EDT Pt transferred out of practice due to age however she is on waitlist for an adult PCP. Dawn isasking if you can refill her Sertraline medication in the mean time. I also advised her to look at other PCP's as well since she is unsure how long the wait list is. Last WCC was 02/29/24. MQ documented in this encounter Plan of Treatment Not on file documented as of this encounter Visit Diagnoses Not on filedocumented in this encounter
--- OUTSIDE RECORDS SUMMARY | 2025-01-01 07:44 | XMS_ITS | Encounter Summary ---
Author Organization [facility] Address [address] [place] [address] Phone Care Team Providers Care Coconut Candy Maker Name Role Phone Héctor Regan MD Primary Care Provider [phone] Encounter Details Date Type Department Care Team (Late st Contact Info) Description 07/09/2017 Procedure [facility] [address] [place] [address] Social History Tobacco Use Types Packs/Day Years [...] on filedocumented in this encounter Care Teams Coconut Candy Maker Relationship Specialty Start Date End Date Héctor Regan MD [facility]6 [facility] [place] [address] PCP - General 04/29/17 documented as of this encounter Additional Source Comments The information contained in this document represents components of the legal health record. It is not the complete legal health record.[facility]
--- OUTSIDE RECORDS SUMMARY | 2025-01-01 07:44 | XMS_ITS | Encounter Summary ---
Author Organization [facility] Address [address] [place] [address] Phone Care Team Providers Care Manufacturing Assembler Name Role Phone Héctor Regan MD Primary Care Provider [phone] Encounter Details Date Type Department Care Team (Late st Contact Info) Description 07/09/2017 Procedure [facility] [address] [place] [address] Social History Tobacco Use Types Packs/Day Years [...] on filedocumented in this encounter Care Teams Manufacturing Assembler Relationship Specialty Start Date End Date Héctor Regan MD [facility]6 [facility] [place] [address] PCP - General 04/29/17 documented as of this encounter Additional Source Comments The information contained in this document represents components of the legal health record. It is not the complete legal health record.[facility]
--- OUTSIDE RECORDS SUMMARY | 2025-01-01 07:44 | XMS_ITS | Encounter Summary ---
Author Organization [facility] Address [address] [place] [address] Phone Care Team Providers Care Internal Communications Writer Name Role Phone Héctor Regan MD Primary Care Provider [phone] Reason for Visit * Reason Comments Med Refill Encounter Details Date Type Department Care Team (Late st Contact Info) Description 01/28/2021 Refill [facility] [place] [address] Debi Manning MD [address] [place] [address] Anxiety Social History Tobacco Use Types Packs/Day [...] unspecified documented in this encounter Care Teams Internal Communications Writer Relationship Specialty Start Date End Date Héctor Regan MD [facility]6 [facility] [place] [address] PCP - General Pediatrics 05/16/21 07/26/24 documented as of this encounter
--- OUTSIDE RECORDS SUMMARY | 2025-01-01 07:44 | XMS_ITS | Encounter Summary ---
Author Organization [facility] Address [address] [place] [address] Phone Care Team Providers Care Director Of Infection Control Name Role Phone Héctor Regan MD Primary Care Provider [phone] Reason for Visit * Reason Comments Med Refill Encounter Details Date Type Department Care Team (Late st Contact Info) Description 07/31/2022 Refill [facility] [address] [place] [address] [place] [address] Héctor Regan MD [address] [place] [address] [place] [address] Anxiety Social History Tobacco Use Types Packs/Day [...] unspecified documented in this encounter Care Teams Director Of Infection Control Relationship Specialty Start Date End Date Héctor Regan MD [facility] [place] [address] PCP - General Pediatrics 05/16/21 07/26/24 documented as of this encounter
--- OUTSIDE RECORDS SUMMARY | 2025-01-01 07:44 | XMS_ITS | Encounter Summary ---
Author Organization [facility] Address [address] [place] [address] Phone Care Team Providers Care Director Of Business Continuity Name Role Phone Héctor Regan MD Primary Care Provider [phone] Encounter Details Date Type Department Care Team (Late st Contact Info) Description 08/18/2023 Procedure Pass [facility], [address] [address] Social History Tobacco Use Types Packs/Day Years Used Date Smoking Tobacco: Never Smokeless Tobacco: Never Alcohol Use Standard Drinks/Week Comments Yes 0 [...] on filedocumented in this encounter Care Teams Director Of Business Continuity Relationship Specialty Start Date End Date Héctor Regan MD [facility]6 [facility] [address] PCP - General 04/29/17 documented as of this encounter Additional Source Comments The information contained in this document represents components of the legal health record. It is not the complete legal health record.[facility]
--- OUTSIDE RECORDS SUMMARY | 2025-01-01 07:44 | XMS_ITS | Encounter Summary ---
Author Organization [facility] Address [address] [place] [address] Phone Care Team Providers Care Cigarette Packing Machine Operator Name Role Phone Héctor Regan MD Primary Care Provider [phone] Encounter Details Date Type Department Care Team (Late st Contact Info) Description 11/17/2010 Conversion Encounter [facility] [address] [place] [address] [place] [address] Social History Tobacco Use Types Packs/Day Years [...] on filedocumented in this encounter Care Teams Cigarette Packing Machine Operator Relationship Specialty Start Date End Date Héctor Regan MD [address] [place] [address] [place] [address] PCP - General Pediatrics 05/16/21 07/26/24 documented as of this encounter
--- OUTSIDE RECORDS SUMMARY | 2025-01-01 07:44 | XMS_ITS | Encounter Summary ---
Author Organization [facility] Address [address] [place] [address] Phone Care Team Providers Care Tool And Die Maker/Designer Name Role Phone Unavailable Primary Care Provider Unavailabl e Reason for Visit * Reason Comments Med Refill Encounter Details Date Type Department Care Team (Late st Contact Info) Description 10/02/2024 Refill [facility] [address] [place] [address] [place] [address] Héctor Regan MD [address] [place] [address] [place] [address] Anxiety Social History Tobacco Use Types Packs/Day [...] Miscellaneous Notes * Telephone Encounter - Luly Salvaodr MA - 10/03/2024 7:58 AM EDT Please deny. Pt inactive. MQ documented in this encounter Plan of Treatment Not on file documented as of this encounter Visit Diagnoses Diagnosis Anxiety Anxiety state, unspecified documented in this encounter
== END 2025-01-01 08:09 | disposition home or self-care (01) ==
PROVIDERS: PCP Internal Medicine; Visit Provider Nurse Practitioner Family
DX: J06.9 Acute upper respiratory infection, unspecified (principal); R05.9 Cough, unspecified